=== PATIENT | male | born 1955 | race Caucasian/White ===

== ENCOUNTER 2019-08-04 09:58 | Outpatient (CLI) | payer BC, SELFPAY ==
[2019-08-04 10:41] LABS: Basophils % 0.6 %; Eosinophils # 0.1 10^3/uL (0.0-0.8); Eosinophils % 3.1 %; Hematocrit 42.4 % (42.0-52.0); Hemoglobin 14.8 g/dL (11.7-16.6); Lymphocytes # 0.3 10^3/uL (0.8-4.8); Lymphocytes % 7.9 %; Mean Corpuscular HGB Conc 34.9 g/dL (30.0-36.0); Mean Corpuscular Hemoglobin 30.9 pg (28.0-34.0); Mean Corpuscular Volume 88.5 fL (80-94); Mean Platelet Volume 10.1 fL (7.4-10.4); Monocytes # 0.3 10^3/uL (0.2-0.9); Neutrophils # 2.8 10^3/uL (1.8-7.7); Neutrophils % 77.7 %; Nucleated Red Blood Cells % 0 %; Platelet Count 163 10^3/cmm (130-400); Red Blood Count 4.79 10^6/uL (4.1-5.3); Red Cell Distribution Width 12.3 % (12.1-15.1); White Blood Count 3.6 10^3/uL (4.0-10.0)
[2019-08-04 10:52] LABS: Alanine Aminotransferase 26 U/L (0-41); Albumin Level 3.9 g/dL (3.5-5.2); Alkaline Phosphatase 79 IU/L (40-130); Anion Gap 16.4 (5-19); Aspartate Amino Transferase 36 U/L (0-40); Blood Urea Nitrogen 14 mg/dL (8-23); Calcium 9.5 mg/dL (8.5-10.5); Carbon Dioxide 24 mmol/L (22-29); Chloride 99 mmol/L (98-107); Globulin 2.7 g/dL (1.3-4.6); Glomerular Filtration Rate 67.4 mL/min (90-130); Glucose 175 mg/dL (74-106); Potassium 3.4 mmol/L (3.5-5.1); Sodium 136 mmol/L (136-145); Total Bilirubin 0.5 mg/dL (0.15-1.2); Total Protein 6.6 g/dL (6.6-8.7)
== END 2019-08-04 09:59 | disposition home or self-care (01) ==
LOC: ONCMED 09:58
PROVIDERS: Family Provider Family Medicine; PCP Family Medicine; Visit Provider Internal Medicine Hematology & Oncology
DX: C82.98 Follicular lymphoma, unspecified, lymph nodes of multiple sites (principal); Z90.49 Acquired absence of other specified parts of digestive tract; D69.6 Thrombocytopenia, unspecified; Z79.899 Other long term (current) drug therapy
CPT/HCPCS: 36415; 80053; 85025; 99214

== ENCOUNTER 2019-09-01 09:01 | Outpatient (CLI) | payer BC, SELFPAY ==
[2019-09-01] MEDS: diphenhydrAMINE 25 mg Capsule PO (09:36)
[2019-09-01] MEDS: acetaminophen 325 mg Tablet 650 MG PO (09:36)
[2019-09-01] MEDS: sodium chloride 0.9% 500 ML 270 ML IV (10:14)
== END 2019-09-01 09:02 | disposition home or self-care (01) ==
LOC: ONCMED 09:08
PROVIDERS: Family Provider Family Medicine; PCP Family Medicine; Visit Provider Nurse Practitioner
DX: Z51.12 Encounter for antineoplastic immunotherapy (principal); C82.90 Follicular lymphoma, unspecified, unspecified site
CPT/HCPCS: 96413; 96415; J7040; J9312

== ENCOUNTER 2019-12-02 08:45 | Outpatient (CLI) | payer BC, SELFPAY ==
[2019-12-02 09:49] LABS: Basophils % 0.4 %; Eosinophils # 0.1 10^3/uL (0.0-0.8); Eosinophils % 2.2 %; Hematocrit 39.4 % (42.0-52.0); Hemoglobin 13.4 g/dL (11.7-16.6); Lymphocytes # 0.2 10^3/uL (0.8-4.8); Lymphocytes % 4.8 %; Mean Corpuscular Volume 88.3 fL (80-94); Mean Platelet Volume 10.2 fL (7.4-10.4); Monocytes # 0.5 10^3/uL (0.2-0.9); Monocytes % 8.9 %; Neutrophils # 4.2 10^3/uL (1.8-7.7); Neutrophils % 83.5 %; Nucleated Red Blood Cells % 0 %; Platelet Count 163 10^3/cmm (130-400); Red Blood Count 4.46 10^6/uL (4.1-5.3); Red Cell Distribution Width 12.2 % (12.1-15.1)
[2019-12-02 10:03] LABS: Alanine Aminotransferase 25 U/L (0-41); Albumin Level 3.9 g/dL (3.5-5.2); Alkaline Phosphatase 73 IU/L (40-130); Anion Gap 14.5 (5-19); Aspartate Amino Transferase 31 U/L (0-40); Blood Urea Nitrogen 10 mg/dL (8-23); Calcium 9.2 mg/dL (8.5-10.5); Carbon Dioxide 24 mmol/L (22-29); Chloride 101 mmol/L (98-107); Globulin 1.9 g/dL (1.3-4.6); Glucose 144 mg/dL (65-115); Osmolality Calculated 281 mOsm/kg (285-295); Potassium 3.5 mmol/L (3.5-5.1); Sodium 136 mmol/L (136-145); Total Bilirubin 0.6 mg/dL (0.15-1.2); Total Protein 5.8 g/dL (6.6-8.7)
[2019-12-02] MEDS: diphenhydrAMINE 25 mg Capsule PO (12:23)
[2019-12-02] MEDS: acetaminophen 325 mg Tablet 650 MG PO (12:23)
[2019-12-02] MEDS: sodium chloride 0.9% 500 ML 75 ML IV (12:23)
--- NOTE | 2019-12-02 16:39 | ONC FU_ITS ---
Dr. Villafuerte follow up note Patient: Eugenio Arzola Unit #: [id number]: 1955 Dicatated By: Awa Villafuerte M.D.Date of Visit:Dec 02, 2019 Onc Med Follow-up/Prog Note History of Present Illness: Mr. Arzola is a 64 year-old gentleman with about six-month history of progressive generalized weakness and recurrent fever and chills. He was treated with antibiotics for presumed bronchitis with no relief. He had drenching night sweats for the last 2 months and weight loss about 20 pounds in the last 3-4 months. As per family/sister report, Mr Arzola started having nausea vomiting for which he underwent CT scan of chest abdomen and pelvis on 08/07/2018 which showed prominent splenomegaly with spleen size about 22 cm, wedge-shaped low density abnormality in the upper spleen. Postcholecystectomy. CT scan of head was done on 08/07/2018 showed no abnormality Stress test done showed ejection fraction 70%, normal Cardiolite stress test His follow-up lab workup done in his PMDs office shows mild anemia and moderate thrombocytopenia, platelet count was 55,000 with hemoglobin 11 white blood count 6.4 patient was referred to Dr. Contreras medical oncologist in [place], bone marrow evaluation was done on 08/22/2018 showed 20% lymphocytes, flow cytometry showed a seated 10+ be lineage non-Hodgkin lymphoma of small cell size consistent with follicular's lymphoma, cytogenetic was unremarkable, normal male karyotype CT PET scan was done on 08/09/2018 showed abnormal increase activity within a significantly enlarged spleen. Increase activity in lymph nodes in the left axilla, right hilum and subcarinal area and right and left groins consistent with lymphoma Small left pleural effusion JAK2 mutation was negative Dr. Contreras, medical oncologist recommended bendamustine and Rituxan chemotherapy but patient lives close to [place], so he decided to transfer his care to cancer Center in [place]. Mr. Arzola began his first cycle of bendamustine/Rituxan on 09/17/2018.Completed four doses of bendamustine/Rituxan on 12/17/2018 Abdominal sonogram done on 10/31/2018 showed spleen measures 13.8 cm x 5.9 x 4.9 cm, echotexture of the spleen is otherwise normal Compared to CT scan of abdomen done prior to the treatment which showed spleen was 22 cm Follow-up CT PET scan done on 01/14/2019 showed pronounced improvement with minimal activity in the spleen and essentially no abnormal activity seen in the lymph nodes Completed 4 cycles of chemotherapy with bendamustine/Rituxan on 12/18/2018 and now being started on maintenance Rituxan 375 mg/m??? every 3 months ???12 doses on 03/11/2019Long-standing e.g. since childhood, History of presyncopal attack and also in other 10 siblings. Mother used to have similar episodes. None of the family member investigated for the cause. On 05/13/2019, during blood drawn for lab workup patient developed presyncopal attack for which she was sent to [facility] where he had CTA pulmonary, showed no evidence of pulmonary embolus X Also had carotid Doppler study which showed normal Doppler flow on both sides. Came for follow-up, denies any specific complaints, no fever or chills, no nausea or vomiting, no skin rash, no diarrhea constipation, no night sweats, no peripheral lymphadenopathy, no recurrent fever, no weight loss. Tolerating Rituxan well Medications: Aspirin 1 Tablet (of 81 mg) Oral daily, Levothyroxine Sodium 1 Tablet (of 100 mcg) Oral daily, Losartan Potassium 1 Tablet (of 50 mg) Oral daily, Melatonin 1 Tablet (of 10 mg) Oral at bedtime Allergies: No Known Allergies. Review of Systems: Constitutional - Appetite is good and weight is stable. No fever, chills, hot flashes, or night sweats. Energy level is good, ENMT - No sinus congestion/drainage. No sore throat or difficulty swallowing, Hematologic/Lymphatic - No abnormal bruising or bleeding, Respiratory - Negative for shortness of breath. No cough. No pleuritic pain or hemoptysis, Cardiovascular - No angina pain. No palpitations, Gastrointestinal - No nausea, no vomiting. No heartburn or acid reflux. No diarrhea or constipation. No blood in the stool or black stools, Genitourinary (M) - No dysuria or hematuria. No urinary frequency. No urgency or incontinence, Musculoskeletal - No joint or bone pain, Neurologic - No headache or dizziness. Positive for numbness in hands and feet, Psychiatric - No anxiety or depression. Positive for occasional insomnia. Vital Signs: Performed on Dec 02, 2019 11:35 Height - 69.00 in Weight - 215.6 lbs (LOW) BSA - 2.13 sq.m BMI - 31.84 (HIGH) Temperature - 97.7 F (LOW) Pulse - 62 /min Respiration - 22 /min BP - 122/83 mm(hg) O2 Sat - 98 % Pain - 0 Performance Status: 0 - Fully active, able to carry on all predisease activities without restrictions. (ECOG) Physical Examination: ENMT - no mouth sores, no thrush, Respiratory - Lungs are clear, Cardiovascular - Regular rate and rhythm of heart, Abdomen - soft, bowel sounds present, Extremities - no visible edema, or rash. Lab/Imaging: Test performed on Aug 04, 2019 10:15 Sodium 136 mmol/L Potassium 3.4 mmol/L Chloride 99 mmol/L CO2 24 mmol/L Anion Gap 16.4 BUN 14 mg/dL Creatinine 1.1 mg/dL Cr Clearance (Est) 88.4500 mL/min eGFR 67.4 mL/min Glucose 175 mg/dL Calcium 9.5 mg/dL Protein, Total 6.6 g/dL Albumin 3.9 g/dL Globulin 2.7 g/dL Bilirubin, Total 0.5 mg/dL ALT (SGPT) 26 U/L AST (SGOT) 36 U/L Alkaline Phosphatase 79 IU/L WBC 3.6 10 3/uL RBC 4.79 10 6/uL HGB 14.8 g/dL HCT 42.4 % MCV 88.5 fL MCH 30.9 pg MCHC 34.9 g/dL RDW 12.3 % Platelet Count 163 10 3/cmm MPV 10.1 fL Neutrophils 2.8 10 3/uL Lymphocytes 0.3 10 3/uL Monocytes 0.3 10 3/uL Eosinophils 0.1 10 3/uL Basophils 0.0 10 3/uL Neutrophil % 77.7 % Lymphocyte % 7.9 % Monocyte % 9.0 % Eosinophil % 3.1 % Basophils % 0.6 % Impression: Follicular lymphoma per bone marrow biopsy done on 08/22/2018 showed 20% lymphocytes, flow cytometry reveals a CD10 positive, B lineage non-Hodgkin's lymphoma of small cell size consistent with follicular lymphoma Cytogenetics showed normal male karyotype CT scan of chest abdomen pelvis on 08/07/2018 showed prominent splenomegaly with the spleen measuring at least 22 cm Follow-up ultrasound abdomen done on 10/31/2018 after 2 cycles of bendamustine/Rituxan showed good response with spleen size decreased to 13.8 cm Status post cholecystectomy Thrombocytopenia, platelet count 55,000, mild anemia CT PET scan done on 09/06/2018 showed abnormal increased activity within significantly enlarged spleen Increase activity in lymph nodes in the left axilla, right hilum and subcarinal area and right and left groin consistent with lymphoma B symptoms, including drenching night sweats, recurrent chills, weight loss, discussed with patient his disease status and treatment options patient has significant B symptoms severe enough to interfere in his day to day activity, and bothersome progressive generalized weakness and fatigue,, abdominal fullness due to massive spleen. Thrombocytopenia/anemia appears multifactorial including due to hypersplenism and or bone marrow infiltration with follicular lymphoma cell and/or autoimmune Treatment options were discussed in detail including bendamustine/Rituxan regimen as recommended by Dr. Contreras, medical oncologist in [place].we are in agreement with that treatment plan. He was started on prednisone in the interim as well as allopurinol for tumor lysis. A hepatitis profile was negative. Mr. Arzola began his first cycle of bendamustine and Rituxan on 09/17/2018.Completed four doses of bendamustine/Rituxan on 12/17/2018 follow-up CT PET scan done on 01/14/2019 showed pronounced improvement with minimal activity in the spleen and essentially no abnormal activity seen in the lymph nodes Completed 4 cycles of bendamustine/Rituxan on 12/18/2018, now being started on maintenance Rituxan 375 mg/m??? every 2 months ???12 doses on 03/11/2019 Plan: Discussed with patient regarding his labs white blood count 5 hemoglobin 13.4 hematocrit 39.4 platelets 162,000 CMP within normal limits Clinically, patient doing well, no B signs symptom suggestive of disease progression, tolerating maintenance dose Rituxan well, we'll proceed with next dose of Rituxan today and then he will return to clinic in 2 months as patient is tolerating Rituxan well so we'll switch him to Rituxan every 2 months for remaining maintenance course e.g. total 12 doses Signed By: Awa Villafuerte M.D. <<Signature on File>>
== END 2019-12-02 08:46 | disposition home or self-care (01) ==
LOC: ONCMED 08:45
PROVIDERS: PCP Family Medicine; Visit Provider Internal Medicine Hematology & Oncology
DX: Z51.12 Encounter for antineoplastic immunotherapy (principal); C82.90 Follicular lymphoma, unspecified, unspecified site; I10 Essential (primary) hypertension; E03.9 Hypothyroidism, unspecified; R16.1 Splenomegaly, not elsewhere classified
CPT/HCPCS: 36415; 80053; 85025; 96413; 96415; 99214; J7040; J9312

== ENCOUNTER 2020-02-02 08:55 | Outpatient (CLI) | payer BC, SELFPAY ==
[2020-02-02 09:56] LABS: Basophils % 0.2 %; Eosinophils # 0.1 10^3/uL (0.0-0.8); Eosinophils % 2.2 %; Hematocrit 40.1 % (42.0-52.0); Hemoglobin 13.7 g/dL (11.7-16.6); Lymphocytes # 0.3 10^3/uL (0.8-4.8); Lymphocytes % 6.7 %; Mean Corpuscular HGB Conc 34.2 g/dL (30.0-36.0); Mean Corpuscular Hemoglobin 30.8 pg (28.0-34.0); Mean Corpuscular Volume 90.1 fL (80-94); Mean Platelet Volume 10.8 fL (7.4-10.4); Monocytes # 0.4 10^3/uL (0.2-0.9); Monocytes % 8.9 %; Neutrophils # 3.64 10^3/uL (1.8-7.7); Neutrophils % 81.6 %; Nucleated Red Blood Cells % 0 %; Platelet Count 150 10^3/cmm (130-400); Red Blood Count 4.45 10^6/uL (4.1-5.3); Red Cell Distribution Width 12.6 % (12.1-15.1); White Blood Count 4.5 10^3/uL (4.0-10.0)
[2020-02-02 10:17] LABS: Alanine Aminotransferase 36 U/L (0-41); Albumin Level 4.2 g/dL (3.5-5.2); Alkaline Phosphatase 70 IU/L (40-130); Anion Gap 14.5 (5-19); Aspartate Amino Transferase 47 U/L (0-40); Blood Urea Nitrogen 12 mg/dL (8-23); Calcium 8.7 mg/dL (8.5-10.5); Carbon Dioxide 24 mmol/L (22-29); Chloride 104 mmol/L (98-107); Globulin 2.1 g/dL (1.3-4.6); Glomerular Filtration Rate 75.2 mL/min (90-130); Glucose 166 mg/dL (65-115); Osmolality Calculated 288 mOsm/kg (285-295); Potassium 3.5 mmol/L (3.5-5.1); Sodium 139 mmol/L (136-145); Total Bilirubin 0.6 mg/dL (0.15-1.2); Total Protein 6.3 g/dL (6.6-8.7)
[2020-02-02] MEDS: acetaminophen 325 mg Tablet 650 MG PO (12:05)
[2020-02-02] MEDS: diphenhydrAMINE 25 mg Capsule PO (12:05)
[2020-02-02] MEDS: sodium chloride 0.9% 500 ML 270 ML IV (12:20)
--- NOTE | 2020-02-02 14:53 | ONC FU_ITS ---
Dr. Villafuerte follow up note Patient: Eugenio Arzola Unit #: [id number]: 1955 Dicatated By: Awa Villafuerte M.D.Date of Visit:Feb 02, 2020 Onc Med Follow-up/Prog Note History of Present Illness: Mr. Arzola is a 64 year-old gentleman with about six-month history of progressive generalized weakness and recurrent fever and chills. He was treated with antibiotics for presumed bronchitis with no relief. He had drenching night sweats for the last 2 months and weight loss about 20 pounds in the last 3-4 months. As per family/sister report, Mr Arzola started having nausea vomiting for which he underwent CT scan of chest abdomen and pelvis on 08/07/2018 which showed prominent splenomegaly with spleen size about 22 cm, wedge-shaped low density abnormality in the upper spleen. Postcholecystectomy. CT scan of head was done on 08/07/2018 showed no abnormality Stress test done showed ejection fraction 70%, normal Cardiolite stress test His follow-up lab workup done in his PMDs office shows mild anemia and moderate thrombocytopenia, platelet count was 55,000 with hemoglobin 11 white blood count 6.4 patient was referred to Dr. Contreras medical oncologist in [place], bone marrow evaluation was done on 08/22/2018 showed 20% lymphocytes, flow cytometry showed a seated 10+ be lineage non-Hodgkin lymphoma of small cell size consistent with follicular's lymphoma, cytogenetic was unremarkable, normal male karyotype CT PET scan was done on 08/09/2018 showed abnormal increase activity within a significantly enlarged spleen. Increase activity in lymph nodes in the left axilla, right hilum and subcarinal area and right and left groins consistent with lymphoma Small left pleural effusion JAK2 mutation was negative Dr. Contreras, medical oncologist recommended bendamustine and Rituxan chemotherapy but patient lives close to [place], so he decided to transfer his care to cancer Center in [place]. Mr. Arzola began his first cycle of bendamustine/Rituxan on 09/17/2018.Completed four doses of bendamustine/Rituxan on 12/17/2018 Abdominal sonogram done on 10/31/2018 showed spleen measures 13.8 cm x 5.9 x 4.9 cm, echotexture of the spleen is otherwise normal Compared to CT scan of abdomen done prior to the treatment which showed spleen was 22 cm Follow-up CT PET scan done on 01/14/2019 showed pronounced improvement with minimal activity in the spleen and essentially no abnormal activity seen in the lymph nodes Completed 4 cycles of chemotherapy with bendamustine/Rituxan on 12/18/2018 and now being started on maintenance Rituxan 375 mg/m??? every 3 months ???12 doses on 03/11/2019Long-standing e.g. since childhood, History of presyncopal attack and also in other 10 siblings. Mother used to have similar episodes. None of the family member investigated for the cause. On 05/13/2019, during blood drawn for lab workup patient developed presyncopal attack for which she was sent to [facility] where he had CTA pulmonary, showed no evidence of pulmonary embolus X Also had carotid Doppler study which showed normal Doppler flow on both sides. Came for follow-up, denies any specific complaints, no fever chills, no nausea or vomiting, no diarrhea or constipation, no night sweats, no weight loss, no recurrent fever, no peripheral lymphadenopathy, no abdominal fullness, no jaundice, no skin rash, tolerating maintenance therapy with Rituxan well Medications: Aspirin 1 Tablet (of 81 mg) Oral daily, Levothyroxine Sodium 1 Tablet (of 100 mcg) Oral daily, Losartan Potassium 1 Tablet (of 50 mg) Oral daily, Melatonin 1 Tablet (of 10 mg) Oral at bedtime Allergies: No Known Allergies. Review of Systems: Constitutional - Appetite is good and weight is stable. No fever, chills, hot flashes, or night sweats. Energy level is good, ENMT - No sinus congestion/drainage. No sore throat or difficulty swallowing, Hematologic/Lymphatic - No abnormal bruising or bleeding, Respiratory - Negative for shortness of breath. No cough. No pleuritic pain or hemoptysis, Cardiovascular - No angina pain. No palpitations, Gastrointestinal - No nausea, no vomiting. No heartburn or acid reflux. No diarrhea or constipation. No blood in the stool or black stools, Genitourinary (M) - No dysuria or hematuria. No urinary frequency. No urgency or incontinence, Musculoskeletal - No joint or bone pain, Neurologic - No headache or dizziness. Positive for numbness in hands and feet, Psychiatric - No anxiety or depression. Positive for occasional insomnia. Vital Signs: Performed on Feb 02, 2020 11:21 Height - 69.00 in Weight - 226.2 lbs (HIGH) BSA - 2.18 sq.m BMI - 33.40 (HIGH) Temperature - 97.5 F (LOW) Pulse - 57 /min (LOW) Respiration - 18 /min BP - 119/78 mm(hg) O2 Sat - 99 % Pain - 0 Performance Status: 0 - Fully active, able to carry on all predisease activities without restrictions. (ECOG) Physical Examination: ENMT - No mouth sores, no thrush, no jaundice, no peripheral lymphadenopathy, Respiratory - Lungs are clear, Cardiovascular - Regular rate and rhythm of heart, Abdomen - Soft, bowel sounds present, Extremities - No visible edema. Lab/Imaging: Test performed on Feb 02, 2020 09:15 WBC 4.5 10 3/uL RBC 4.45 10 6/uL HGB 13.7 g/dL HCT 40.1 % MCV 90.1 fL MCH 30.8 pg MCHC 34.2 g/dL RDW 12.6 % Platelet Count 150 10 3/cmm MPV 10.8 fL Neutrophils 3.64 10 3/uL Lymphocytes 0.3 10 3/uL Monocytes 0.4 10 3/uL Eosinophils 0.1 10 3/uL Basophils 0.0 10 3/uL Neutrophil % 81.6 % Lymphocyte % 6.7 % Monocyte % 8.9 % Eosinophil % 2.2 % Basophils % 0.2 % NRBC % 0 % Test performed on Dec 02, 2019 09:30 Sodium 136 mmol/L Potassium 3.5 mmol/L Chloride 101 mmol/L CO2 24 mmol/L Anion Gap 14.5 BUN 10 mg/dL Creatinine 0.9 mg/dL Cr Clearance (Est) 108.1000 mL/min eGFR 85.0 mL/min Glucose 144 mg/dL Calcium 9.2 mg/dL Protein, Total 5.8 g/dL Albumin 3.9 g/dL Globulin 1.9 g/dL Bilirubin, Total 0.6 mg/dL ALT (SGPT) 25 U/L AST (SGOT) 31 U/L Alkaline Phosphatase 73 IU/L Impression: Follicular lymphoma per bone marrow biopsy done on 08/22/2018 showed 20% lymphocytes, flow cytometry reveals a CD10 positive, B lineage non-Hodgkin's lymphoma of small cell size consistent with follicular lymphoma Cytogenetics showed normal male karyotype CT scan of chest abdomen pelvis on 08/07/2018 showed prominent splenomegaly with the spleen measuring at least 22 cm Follow-up ultrasound abdomen done on 10/31/2018 after 2 cycles of bendamustine/Rituxan showed good response with spleen size decreased to 13.8 cm Status post cholecystectomy Thrombocytopenia, platelet count 55,000, mild anemia CT PET scan done on 09/06/2018 showed abnormal increased activity within significantly enlarged spleen Increase activity in lymph nodes in the left axilla, right hilum and subcarinal area and right and left groin consistent with lymphoma B symptoms, including drenching night sweats, recurrent chills, weight loss, discussed with patient his disease status and treatment options patient has significant B symptoms severe enough to interfere in his day to day activity, and bothersome progressive generalized weakness and fatigue,, abdominal fullness due to massive spleen. Thrombocytopenia/anemia appears multifactorial including due to hypersplenism and or bone marrow infiltration with follicular lymphoma cell and/or autoimmune Treatment options were discussed in detail including bendamustine/Rituxan regimen as recommended by Dr. Contreras, medical oncologist in [place].we are in agreement with that treatment plan. He was started on prednisone in the interim as well as allopurinol for tumor lysis. A hepatitis profile was negative. Mr. Arzola began his first cycle of bendamustine and Rituxan on 09/17/2018.Completed four doses of bendamustine/Rituxan on 12/17/2018 follow-up CT PET scan done on 01/14/2019 showed pronounced improvement with minimal activity in the spleen and essentially no abnormal activity seen in the lymph nodes Completed 4 cycles of bendamustine/Rituxan on 12/18/2018, now being started on maintenance Rituxan 375 mg/m??? every 2 months ???12 doses on 03/11/2019 Plan: Discussed with patient regarding his labs white blood count 4.5 hemoglobin 13.7 crit 40.1 platelets 150,000 CMP within normal limits Clinically, patient is doing well with no signs symptom suggestive of recurrence of disease e.g. no B symptoms and lab work-up is also within normal range, will proceed with next 2 monthly dose # 5/12 of Rituxan today and return to clinic in 2 months with CBC CMP Signed By: Awa Villafuerte M.D. <<Signature on File>>
== END 2020-02-02 08:56 | disposition home or self-care (01) ==
LOC: ONCMED 08:57
PROVIDERS: PCP Family Medicine; Visit Provider Internal Medicine Hematology & Oncology
DX: Z51.12 Encounter for antineoplastic immunotherapy (principal); C82.99 Follicular lymphoma, unspecified, extranodal and solid organ sites
CPT/HCPCS: 80053; 85025; 96413; 96415; 99214; J7040; J9312

== ENCOUNTER 2020-04-05 08:55 | Outpatient (CLI) | payer MEDICARE, BC, SELFPAY ==
[2020-04-05 09:51] LABS: Basophils % 0.2 %; Eosinophils # 0.1 10^3/uL (0.0-0.8); Eosinophils % 2.2 %; Hematocrit 41.5 % (42.0-52.0); Lymphocytes # 0.2 10^3/uL (0.8-4.8); Lymphocytes % 4.2 %; Mean Corpuscular HGB Conc 33.7 g/dL (30.0-36.0); Mean Corpuscular Hemoglobin 30.4 pg (28.0-34.0); Mean Corpuscular Volume 90.2 fL (80-94); Mean Platelet Volume 10.2 fL (7.4-10.4); Monocytes # 0.5 10^3/uL (0.2-0.9); Monocytes % 8.2 %; Neutrophils # 4.66 10^3/uL (1.8-7.7); Neutrophils % 84.8 %; Nucleated Red Blood Cells % 0 %; Platelet Count 153 10^3/cmm (130-400); Red Cell Distribution Width 12.5 % (12.1-15.1); White Blood Count 5.5 10^3/uL (4.0-10.0)
[2020-04-05 10:08] LABS: Alanine Aminotransferase 47 U/L (0-41); Albumin Level 3.9 g/dL (3.5-5.2); Alkaline Phosphatase 81 IU/L (40-130); Anion Gap 16.6 (5-19); Aspartate Amino Transferase 55 U/L (0-40); Blood Urea Nitrogen 14 mg/dL (8-23); Calcium 8.9 mg/dL (8.5-10.5); Carbon Dioxide 19 mmol/L (22-29); Chloride 103 mmol/L (98-107); Glomerular Filtration Rate 84.7 mL/min (90-130); Glucose 168 mg/dL (65-115); Osmolality Calculated 284 mOsm/kg (285-295); Potassium 3.6 mmol/L (3.5-5.1); Sodium 135 mmol/L (136-145); Total Bilirubin 0.8 mg/dL (0.15-1.2); Total Protein 5.9 g/dL (6.6-8.7)
[2020-04-05] MEDS: diphenhydrAMINE 25 mg Capsule PO (11:40)
[2020-04-05] MEDS: acetaminophen 325 mg Tablet 650 MG PO (11:40)
[2020-04-05] MEDS: sodium chloride 0.9% 500 ML 75 ML IV (11:57)
--- NOTE | 2020-04-05 14:48 | ONC FU_ITS ---
Dr. Villafuerte follow up note Patient: Eugenio Arzola Unit #: [id number]: 1955 Dicatated By: Awa Villafuerte M.D.Date of Visit:Apr 05, 2020 Onc Med Follow-up/Prog Note History of Present Illness: 5MrEugene Arzola is a 65 year-old gentleman with about six-month history of progressive generalized weakness and recurrent fever and chills. He was treated with antibiotics for presumed bronchitis with no relief. He had drenching night sweats for the last 2 months and weight loss about 20 pounds in the last 3-4 months. As per family/sister report, Mr Arzola started having nausea vomiting for which he underwent CT scan of chest abdomen and pelvis on 08/07/2018 which showed prominent splenomegaly with spleen size about 22 cm, wedge-shaped low density abnormality in the upper spleen. Postcholecystectomy. CT scan of head was done on 08/07/2018 showed no abnormality Stress test done showed ejection fraction 70%, normal Cardiolite stress test His follow-up lab workup done in his [facility] office shows mild anemia and moderate thrombocytopenia, platelet count was 55,000 with hemoglobin 11 white blood count 6.4 patient was referred to Dr. Contreras medical oncologist in [place], bone marrow evaluation was done on 08/22/2018 showed 20% lymphocytes, flow cytometry showed a seated 10+ be lineage non-Hodgkin lymphoma of small cell size consistent with follicular's lymphoma, cytogenetic was unremarkable, normal male karyotype CT PET scan was done on 08/09/2018 showed abnormal increase activity within a significantly enlarged spleen. Increase activity in lymph nodes in the left axilla, right hilum and subcarinal area and right and left groins consistent with lymphoma Small left pleural effusion JAK2 mutation was negative Dr. White, medical oncologist recommended bendamustine and Rituxan chemotherapy but patient lives close to [place], so he decided to transfer his care to cancer Center in [place]. Mr. Arzola began his first cycle of bendamustine/Rituxan on 09/17/2018.Completed four doses of bendamustine/Rituxan on 12/17/2018 Abdominal sonogram done on 10/31/2018 showed spleen measures 13.8 cm x 5.9 x 4.9 cm, echotexture of the spleen is otherwise normal Compared to CT scan of abdomen done prior to the treatment which showed spleen was 22 cm Follow-up CT PET scan done on 01/14/2019 showed pronounced improvement with minimal activity in the spleen and essentially no abnormal activity seen in the lymph nodes Completed 4 cycles of chemotherapy with bendamustine/Rituxan on 12/18/2018 and now being started on maintenance Rituxan 375 mg/m??? every 3 months ???12 doses on 03/11/2019Long-standing e.g. since childhood, History of presyncopal attack and also in other 10 siblings. Mother used to have similar episodes. None of the family member investigated for the cause. On 05/13/2019, during blood drawn for lab workup patient developed presyncopal attack for which she was sent to [facility] where he had CTA pulmonary, showed no evidence of pulmonary embolus X Also had carotid Doppler study which showed normal Doppler flow on both sides. Came for follow-up, denies any specific complaints, no fever chills, no nausea or vomiting, no night sweats, no weight loss, no peripheral lymphadenopathy or abdominal fullness, no recurrent fever., No skin rash, no jaundice, no shortness of breath or palpitation, tolerating maintenance dose with Rituxan well Medications: Aspirin 1 Tablet (of 81 mg) Oral daily, Levothyroxine Sodium 1 Tablet (of 100 mcg) Oral daily, Losartan Potassium 1 Tablet (of 50 mg) Oral daily, Melatonin 1 Tablet (of 10 mg) Oral at bedtime Allergies: No Known Allergies. Review of Systems: Review of Systems is not available for this patient. Vital Signs: Performed on Apr 05, 2020 10:42 Height - 69.00 in Weight - 224.6 lbs (LOW) BSA - 2.17 sq.m BMI - 33.17 (HIGH) Temperature - 97.8 F (LOW) Pulse - 66 /min Respiration - 18 /min BP - 114/74 mm(hg) O2 Sat - 96 % Pain - 0 Performance Status: 0 - Fully active, able to carry on all predisease activities without restrictions. (ECOG) Physical Examination: ENMT - No mouth sores, no thrush, no jaundice, Respiratory - Lungs are clear, Cardiovascular - Regular rate and rhythm of heart, Abdomen - Soft, bowel sounds present, Extremities - No visible edema. Lab/Imaging: Test performed on Feb 02, 2020 09:15 Sodium 139 mmol/L Potassium 3.5 mmol/L Chloride 104 mmol/L CO2 24 mmol/L Anion Gap 14.5 BUN 12 mg/dL Creatinine 1.0 mg/dL Cr Clearance (Est) 108.30 mL/min eGFR 75.2 mL/min Glucose 166 mg/dL Calcium 8.7 mg/dL Protein, Total 6.3 g/dL Albumin 4.2 g/dL Globulin 2.1 g/dL Bilirubin, Total 0.6 mg/dL ALT (SGPT) 36 U/L AST (SGOT) 47 U/L Alkaline Phosphatase 70 IU/L WBC 4.5 10 3/uL RBC 4.45 10 6/uL HGB 13.7 g/dL HCT 40.1 % MCV 90.1 fL MCH 30.8 pg MCHC 34.2 g/dL RDW 12.6 % Platelet Count 150 10 3/cmm MPV 10.8 fL Neutrophils 3.64 10 3/uL Lymphocytes 0.3 10 3/uL Monocytes 0.4 10 3/uL Eosinophils 0.1 10 3/uL Basophils 0.0 10 3/uL Neutrophil % 81.6 % Lymphocyte % 6.7 % Monocyte % 8.9 % Eosinophil % 2.2 % Basophils % 0.2 % NRBC % 0 % Impression: Follicular lymphoma per bone marrow biopsy done on 08/22/2018 showed 20% lymphocytes, flow cytometry reveals a CD10 positive, B lineage non-Hodgkin's lymphoma of small cell size consistent with follicular lymphoma Cytogenetics showed normal male karyotype CT scan of chest abdomen pelvis on 08/07/2018 showed prominent splenomegaly with the spleen measuring at least 22 cm Follow-up ultrasound abdomen done on 10/31/2018 after 2 cycles of bendamustine/Rituxan showed good response with spleen size decreased to 13.8 cm Status post cholecystectomy Thrombocytopenia, platelet count 55,000, mild anemia CT PET scan done on 09/06/2018 showed abnormal increased activity within significantly enlarged spleen Increase activity in lymph nodes in the left axilla, right hilum and subcarinal area and right and left groin consistent with lymphoma B symptoms, including drenching night sweats, recurrent chills, weight loss, discussed with patient his disease status and treatment options patient has significant B symptoms severe enough to interfere in his day to day activity, and bothersome progressive generalized weakness and fatigue,, abdominal fullness due to massive spleen. Thrombocytopenia/anemia appears multifactorial including due to hypersplenism and or bone marrow infiltration with follicular lymphoma cell and/or autoimmune Treatment options were discussed in detail including bendamustine/Rituxan regimen as recommended by Dr. Contreras, medical oncologist in [place].we are in agreement with that treatment plan. He was started on prednisone in the interim as well as allopurinol for tumor lysis. A hepatitis profile was negative. Mr. Arzola began his first cycle of bendamustine and Rituxan on 09/17/2018.Completed four doses of bendamustine/Rituxan on 12/17/2018 follow-up CT PET scan done on 01/14/2019 showed pronounced improvement with minimal activity in the spleen and essentially no abnormal activity seen in the lymph nodes Completed 4 cycles of bendamustine/Rituxan on 12/18/2018, now being started on maintenance Rituxan 375 mg/m??? every 2 months ???12 doses on 03/11/2019 Plan: Discussed with patient regarding his labs white blood count 5.5 hemoglobin 14 crit 41.5 platelets 153,000 CMP within normal limits except ALT 47 and AST 55 compared to 36/47 on February 02, 2020 and on December 02, 2019 Clinically, patient is doing well with no signs symptom suggestive of recurrence of disease, no peripheral lymphadenopathy or organomegaly, tolerating maintenance therapy with Rituxan well. We will proceed with the next dose of Rituxan, today and then he will return to clinic 2 months with CBC CMP. Mild elevation of transaminases could be due to fatty infiltration of liver as patient has gained weight. We will monitor if continue to go up, will consider evaluation. Signed By: Awa Villafuerte M.D. <<Signature on File>>
== END 2020-04-05 08:56 | disposition home or self-care (01) ==
LOC: ONCMED 08:59
PROVIDERS: PCP Family Medicine; Visit Provider Internal Medicine Hematology & Oncology
DX: Z51.12 Encounter for antineoplastic immunotherapy (principal); C82.90 Follicular lymphoma, unspecified, unspecified site; D69.6 Thrombocytopenia, unspecified; R61 Generalized hyperhidrosis; R63.4 Abnormal weight loss; R68.83 Chills (without fever); R74.8 Abnormal levels of other serum enzymes
CPT/HCPCS: 80053; 85025; 96413; 96415; 99214; J7040; J9312

== ENCOUNTER 2020-06-02 07:58 | Outpatient (CLI) | payer MEDICARE, BC, SELFPAY ==
[2020-06-02 09:27] LABS: Basophils % 0.4 %; Eosinophils # 0.1 10^3/uL (0.0-0.8); Eosinophils % 2.3 %; Hematocrit 40.9 % (42.0-52.0); Hemoglobin 13.8 g/dL (11.7-16.6); Lymphocytes # 0.3 10^3/uL (0.8-4.8); Lymphocytes % 4.9 %; Mean Corpuscular HGB Conc 33.7 g/dL (30.0-36.0); Mean Corpuscular Hemoglobin 30.1 pg (28.0-34.0); Mean Corpuscular Volume 89.3 fL (80-94); Mean Platelet Volume 10.1 fL (7.4-10.4); Monocytes # 0.5 10^3/uL (0.2-0.9); Monocytes % 9.4 %; Neutrophils # 4.68 10^3/uL (1.8-7.7); Neutrophils % 82.6 %; Nucleated Red Blood Cells % 0 %; Platelet Count 157 10^3/cmm (130-400); Red Blood Count 4.58 10^6/uL (4.1-5.3); Red Cell Distribution Width 12.3 % (12.1-15.1); White Blood Count 5.7 10^3/uL (4.0-10.0)
[2020-06-02 10:03] LABS: Alanine Aminotransferase 35 U/L (0-41); Alkaline Phosphatase 84 IU/L (40-130); Anion Gap 15.9 (5-19); Aspartate Amino Transferase 39 U/L (0-40); Blood Urea Nitrogen 11 mg/dL (8-23); Calcium 8.8 mg/dL (8.5-10.5); Carbon Dioxide 23 mmol/L (22-29); Chloride 104 mmol/L (98-107); Globulin 1.9 g/dL (1.3-4.6); Glomerular Filtration Rate 84.7 mL/min (90-130); Glucose 124 mg/dL (65-115); Osmolality Calculated 289 mOsm/kg (285-295); Potassium 3.9 mmol/L (3.5-5.1); Sodium 139 mmol/L (136-145); Total Bilirubin 0.8 mg/dL (0.15-1.2); Total Protein 5.9 g/dL (6.6-8.7)
--- NOTE | 2020-06-02 10:20 | ONC FU_ITS ---
Dr. Villafuerte follow up note Patient: Eugenio Arzola Unit #: [id number]: 1955 Dicatated By: Awa Villafuerte M.D.Date of Visit:Jun 02, 2020 Onc Med Follow-up/Prog Note History of Present Illness: 5MrEugene Arzola is a 65 year-old gentleman with about six-month history of progressive generalized weakness and recurrent fever and chills. He was treated with antibiotics for presumed bronchitis with no relief. He had drenching night sweats for the last 2 months and weight loss about 20 pounds in the last 3-4 months. As per family/sister report, Mr Arzola started having nausea vomiting for which he underwent CT scan of chest abdomen and pelvis on 08/07/2018 which showed prominent splenomegaly with spleen size about 22 cm, wedge-shaped low density abnormality in the upper spleen. Postcholecystectomy. CT scan of head was done on 08/07/2018 showed no abnormality Stress test done showed ejection fraction 70%, normal Cardiolite stress test His follow-up lab workup done in his [facility] office shows mild anemia and moderate thrombocytopenia, platelet count was 55,000 with hemoglobin 11 white blood count 6.4 patient was referred to Dr. Contreras medical oncologist in [place], bone marrow evaluation was done on 08/22/2018 showed 20% lymphocytes, flow cytometry showed a seated 10+ be lineage non-Hodgkin lymphoma of small cell size consistent with follicular's lymphoma, cytogenetic was unremarkable, normal male karyotype CT PET scan was done on 08/09/2018 showed abnormal increase activity within a significantly enlarged spleen. Increase activity in lymph nodes in the left axilla, right hilum and subcarinal area and right and left groins consistent with lymphoma Small left pleural effusion JAK2 mutation was negative Dr. White, medical oncologist recommended bendamustine and Rituxan chemotherapy but patient lives close to [place], so he decided to transfer his care to cancer Center in [place]. Mr. Arzola began his first cycle of bendamustine/Rituxan on 09/17/2018.Completed four doses of bendamustine/Rituxan on 12/17/2018 Abdominal sonogram done on 10/31/2018 showed spleen measures 13.8 cm x 5.9 x 4.9 cm, echotexture of the spleen is otherwise normal Compared to CT scan of abdomen done prior to the treatment which showed spleen was 22 cm Follow-up CT PET scan done on 01/14/2019 showed pronounced improvement with minimal activity in the spleen and essentially no abnormal activity seen in the lymph nodes Completed 4 cycles of chemotherapy with bendamustine/Rituxan on 12/18/2018 and now being started on maintenance Rituxan 375 mg/m??? every 3 months ???12 doses on 03/11/2019Long-standing e.g. since childhood, History of presyncopal attack and also in other 10 siblings. Mother used to have similar episodes. None of the family member investigated for the cause. On 05/13/2019, during blood drawn for lab workup patient developed presyncopal attack for which she was sent to [facility] where he had CTA pulmonary, showed no evidence of pulmonary embolus X Also had carotid Doppler study which showed normal Doppler flow on both sides. tolerating maintenance dose with Rituxan well Came for follow-up, denies any specific complaints, no fever chills, no nausea or vomiting, no night sweats, no weight loss, no recurrent fever, no jaundice, no abdominal pain, no abdominal fullness, no peripheral lymphadenopathy Medications: Aspirin 1 Tablet (of 81 mg) Oral daily, Levothyroxine Sodium 1 Tablet (of 100 mcg) Oral daily, Losartan Potassium 1 Tablet (of 50 mg) Oral daily, Melatonin 1 Tablet (of 10 mg) Oral at bedtime, Simvastatin 1 Tablet (of 20 mg) Oral at bedtime Allergies: No Known Allergies. Review of Systems: Constitutional - Appetite is good and weight is stable. No fever, chills, hot flashes, or night sweats. Energy level is good, ENMT - No sinus congestion/drainage. No sore throat or difficulty swallowing, Hematologic/Lymphatic - No abnormal bruising or bleeding, Respiratory - Negative for shortness of breath. No cough. No pleuritic pain or hemoptysis, Cardiovascular - No angina pain. No palpitations, Gastrointestinal - No nausea, no vomiting. No heartburn or acid reflux. No diarrhea or constipation. No blood in the stool or black stools, Genitourinary (M) - No dysuria or hematuria. No urinary frequency. No urgency or incontinence, Musculoskeletal - No joint or bone pain, Neurologic - No headache or dizziness. Positive for numbness in hands and feet, Psychiatric - No anxiety or depression. Positive for occasional insomnia. Vital Signs: Performed on Jun 02, 2020 09:34 Height - 69.00 in Weight - 226.2 lbs (HIGH) BSA - 2.18 sq.m BMI - 33.40 (HIGH) Temperature - 97.6 F (LOW) Pulse - 61 /min Respiration - 20 /min BP - 127/76 mm(hg) O2 Sat - 97 % Pain - 0 Performance Status: 0 - Fully active, able to carry on all predisease activities without restrictions. (ECOG) Physical Examination: ENMT - No mouth sores, no thrush, no jaundice, Respiratory - Lungs are clear to auscultation, Cardiovascular - Regular rate and rhythm of heart , Abdomen - Soft, bowel sounds present, Extremities - No visible edema or rash or peripheral lymphadenopathy. Lab/Imaging: Test performed on Apr 05, 2020 09:39 Sodium 135 mmol/L Potassium 3.6 mmol/L Chloride 103 mmol/L CO2 19 mmol/L Anion Gap 16.6 BUN 14 mg/dL Creatinine 0.9 mg/dL Cr Clearance (Est) 118.7600 mL/min eGFR 84.7 mL/min Glucose 168 mg/dL Osmolality - Calculated 284 mOsm/kg Calcium 8.9 mg/dL Protein, Total 5.9 g/dL Albumin 3.9 g/dL Globulin 2.0 g/dL Bilirubin, Total 0.8 mg/dL ALT (SGPT) 47 U/L AST (SGOT) 55 U/L Alkaline Phosphatase 81 IU/L WBC 5.5 10 3/uL RBC 4.60 10 6/uL HGB 14.0 g/dL HCT 41.5 % MCV 90.2 fL MCH 30.4 pg MCHC 33.7 g/dL RDW 12.5 % Platelet Count 153 10 3/cmm MPV 10.2 fL Neutrophils 4.66 10 3/uL Lymphocytes 0.2 10 3/uL Monocytes 0.5 10 3/uL Eosinophils 0.1 10 3/uL Basophils 0.0 10 3/uL Neutrophil % 84.8 % Lymphocyte % 4.2 % Monocyte % 8.2 % Eosinophil % 2.2 % Basophils % 0.2 % NRBC % 0 % Impression: Follicular lymphoma per bone marrow biopsy done on 08/22/2018 showed 20% lymphocytes, flow cytometry reveals a CD10 positive, B lineage non-Hodgkin's lymphoma of small cell size consistent with follicular lymphoma Cytogenetics showed normal male karyotype CT scan of chest abdomen pelvis on 08/07/2018 showed prominent splenomegaly with the spleen measuring at least 22 cm Follow-up ultrasound abdomen done on 10/31/2018 after 2 cycles of bendamustine/Rituxan showed good response with spleen size decreased to 13.8 cm Status post cholecystectomy Thrombocytopenia, platelet count 55,000, mild anemia CT PET scan done on 09/06/2018 showed abnormal increased activity within significantly enlarged spleen Increase activity in lymph nodes in the left axilla, right hilum and subcarinal area and right and left groin consistent with lymphoma B symptoms, including drenching night sweats, recurrent chills, weight loss, discussed with patient his disease status and treatment options patient has significant B symptoms severe enough to interfere in his day to day activity, and bothersome progressive generalized weakness and fatigue,, abdominal fullness due to massive spleen. Thrombocytopenia/anemia appears multifactorial including due to hypersplenism and or bone marrow infiltration with follicular lymphoma cell and/or autoimmune Treatment options were discussed in detail including bendamustine/Rituxan regimen as recommended by Dr. Contreras, medical oncologist in [place].we are in agreement with that treatment plan. He was started on prednisone in the interim as well as allopurinol for tumor lysis. A hepatitis profile was negative. Mr. Arzola began his first cycle of bendamustine and Rituxan on 09/17/2018.Completed four doses of bendamustine/Rituxan on 12/17/2018 follow-up CT PET scan done on 01/14/2019 showed pronounced improvement with minimal activity in the spleen and essentially no abnormal activity seen in the lymph nodes Completed 4 cycles of bendamustine/Rituxan on 12/18/2018, now being started on maintenance Rituxan 375 mg/m??? every 2 months ???12 doses on 03/11/2019 Plan: Discussed with patient regarding his labs white blood count 5.7 hemoglobin 13.8 hematocrit 40.9 platelets 157,000 CMP within normal limit Clinically, patient doing well with no new signs symptoms suggestive of recurrence of lymphoma, tolerating maintenance therapy with Rituxan well his follow-up labs shows resolution of mildly elevated transaminases, will proceed with next dose of Rituxan today then return to clinic in 2 months with CBC CMP. Signed By: Awa Villafuerte M.D. <<Signature on File>>
[2020-06-02] MEDS: acetaminophen 325 mg Tablet 650 MG PO (10:33)
[2020-06-02] MEDS: diphenhydrAMINE 25 mg Capsule PO (10:33)
[2020-06-02] MEDS: sodium chloride 0.9% 500 ML 75 ML IV (10:44)
== END 2020-06-02 07:59 | disposition home or self-care (01) ==
LOC: ONCMED 08:02
PROVIDERS: PCP Family Medicine; Visit Provider Internal Medicine Hematology & Oncology
DX: Z51.12 Encounter for antineoplastic immunotherapy (principal); C82.98 Follicular lymphoma, unspecified, lymph nodes of multiple sites; D69.6 Thrombocytopenia, unspecified; Z79.899 Other long term (current) drug therapy
CPT/HCPCS: 80053; 85025; 96413; 96415; 99214; J7040; J9312

== ENCOUNTER 2020-08-04 08:41 | Outpatient (CLI) | payer MEDICARE, BC, SELFPAY ==
[2020-08-04 10:15] LABS: Basophils % 0.7 %; Eosinophils # 0.1 10^3/uL (0.0-0.8); Eosinophils % 2.6 %; Hematocrit 41.4 % (42.0-52.0); Hemoglobin 13.5 g/dL (11.7-16.6); Lymphocytes # 0.4 10^3/uL (0.8-4.8); Lymphocytes % 7.9 %; Mean Corpuscular HGB Conc 32.6 g/dL (30.0-36.0); Mean Corpuscular Hemoglobin 29.9 pg (28.0-34.0); Mean Corpuscular Volume 91.8 fL (80-94); Mean Platelet Volume 10.5 fL (7.4-10.4); Monocytes # 0.5 10^3/uL (0.2-0.9); Monocytes % 9.9 %; Neutrophils # 3.57 10^3/uL (1.8-7.7); Neutrophils % 78.7 %; Nucleated Red Blood Cells % 0 %; Platelet Count 102 10^3/cmm (130-400); Red Blood Count 4.51 10^6/uL (4.1-5.3); Red Cell Distribution Width 12.1 % (12.1-15.1); White Blood Count 4.5 10^3/uL (4.0-10.0)
[2020-08-04 10:46] LABS: Alanine Aminotransferase 27 U/L (0-41); Albumin Level 3.8 g/dL (3.5-5.2); Alkaline Phosphatase 98 IU/L (40-130); Aspartate Amino Transferase 28 U/L (0-40); Blood Urea Nitrogen 9 mg/dL (8-23); Calcium 8.8 mg/dL (8.5-10.5); Carbon Dioxide 23 mmol/L (22-29); Chloride 101 mmol/L (98-107); Globulin 2.1 g/dL (1.3-4.6); Glomerular Filtration Rate 84.7 mL/min (90-130); Glucose 132 mg/dL (65-115); Osmolality Calculated 281 mOsm/kg (285-295); Sodium 135 mmol/L (136-145); Total Bilirubin 0.8 mg/dL (0.15-1.2); Total Protein 5.9 g/dL (6.6-8.7)
[2020-08-04 10:49] LABS: Anion Gap 14.5 (5-19); Potassium 3.5 mmol/L (3.5-5.1)
[2020-08-04 10:57] LABS: Slide Review Slide Review Perform
[2020-08-04] MEDS: diphenhydrAMINE 25 mg Capsule PO (12:13)
[2020-08-04] MEDS: acetaminophen 325 mg Tablet 650 MG PO (12:13)
[2020-08-04] MEDS: sodium chloride 0.9% 500 ML 75 ML IV (12:25)
--- NOTE | 2020-08-04 13:42 | ONC FU_ITS ---
Dr. Villafuerte follow up note Patient: Eugenio Arzola Unit #: [id number]: 1955 Dicatated By: Aaw Villafuerte M.D.Date of Visit:Aug 04, 2020 Onc Med Follow-up/Prog Note History of Present Illness: 5MrEugene Arzola is a 65 year-old gentleman with about six-month history of progressive generalized weakness and recurrent fever and chills. He was treated with antibiotics for presumed bronchitis with no relief. He had drenching night sweats for the last 2 months and weight loss about 20 pounds in the last 3-4 months. As per family/sister report, Mr Arzola started having nausea vomiting for which he underwent CT scan of chest abdomen and pelvis on 08/07/2018 which showed prominent splenomegaly with spleen size about 22 cm, wedge-shaped low density abnormality in the upper spleen. Postcholecystectomy. CT scan of head was done on 08/07/2018 showed no abnormality Stress test done showed ejection fraction 70%, normal Cardiolite stress test His follow-up lab workup done in his PMDs office shows mild anemia and moderate thrombocytopenia, platelet count was 55,000 with hemoglobin 11 white blood count 6.4 patient was referred to Dr. Contreras medical oncologist in [place], bone marrow evaluation was done on 08/22/2018 showed 20% lymphocytes, flow cytometry showed a seated 10+ be lineage non-Hodgkin lymphoma of small cell size consistent with follicular's lymphoma, cytogenetic was unremarkable, normal male karyotype CT PET scan was done on 08/09/2018 showed abnormal increase activity within a significantly enlarged spleen. Increase activity in lymph nodes in the left axilla, right hilum and subcarinal area and right and left groins consistent with lymphoma Small left pleural effusion JAK2 mutation was negative Dr. Contreras, medical oncologist recommended bendamustine and Rituxan chemotherapy but patient lives close to [place], so he decided to transfer his care to cancer Center in [place]. Mr. Arzola began his first cycle of bendamustine/Rituxan on 09/17/2018.Completed four doses of bendamustine/Rituxan on 12/17/2018 Abdominal sonogram done on 10/31/2018 showed spleen measures 13.8 cm x 5.9 x 4.9 cm, echotexture of the spleen is otherwise normal Compared to CT scan of abdomen done prior to the treatment which showed spleen was 22 cm Follow-up CT PET scan done on 01/14/2019 showed pronounced improvement with minimal activity in the spleen and essentially no abnormal activity seen in the lymph nodes Completed 4 cycles of chemotherapy with bendamustine/Rituxan on 12/18/2018 and now being started on maintenance Rituxan 375 mg/m??? every 3 months ???12 doses on 03/11/2019Long-standing e.g. since childhood, History of presyncopal attack and also in other 10 siblings. Mother used to have similar episodes. None of the family member investigated for the cause. On 05/13/2019, during blood drawn for lab workup patient developed presyncopal attack for which she was sent [place] [facility] where he had CTA pulmonary, showed no evidence of pulmonary embolus X Also had carotid Doppler study which showed normal Doppler flow on both sides. tolerating maintenance dose with Rituxan well Came for follow-up, denies any specific complaints, no fever chills, no nausea or vomiting, no diarrhea constipation, no night sweats, no weight loss, no recurrent fever, no abdominal fullness, no peripheral lymphadenopathy, tolerating Rituxan well otherwise Medications: Aspirin 1 Tablet (of 81 mg) Oral daily, Levothyroxine Sodium 1 Tablet (of 100 mcg) Oral daily, Losartan Potassium 1 Tablet (of 50 mg) Oral daily, Melatonin 1 Tablet (of 10 mg) Oral at bedtime, Simvastatin 1 Tablet (of 20 mg) Oral at bedtime Allergies: No Known Allergies. Review of Systems: Review of Systems is not available for this patient. Vital Signs: Performed on Aug 04, 2020 11:45 Height - 69.00 in Weight - 225.4 lbs (LOW) BSA - 2.17 sq.m BMI - 33.29 (HIGH) Temperature - 97.9 F (LOW) Pulse - 70 /min Respiration - 18 /min BP - 135/82 mm(hg) O2 Sat - 97 % Pain - 0 Performance Status: 0 - Fully active, able to carry on all predisease activities without restrictions. (ECOG) Physical Examination: ENMT - No mouth sores, no thrush, no jaundice no cervical or axillary lymphadenopathy, Respiratory - Lungs are clear to auscultation, Cardiovascular - Regular rate and rhythm of heart, Abdomen - Soft, bowel sounds present, Extremities - No visible edema. Lab/Imaging: Test performed on Jun 02, 2020 09:04 Sodium 139 mmol/L Potassium 3.9 mmol/L Chloride 104 mmol/L CO2 23 mmol/L Anion Gap 15.9 BUN 11 mg/dL Creatinine 0.9 mg/dL Cr Clearance (Est) 118.7600 mL/min eGFR 84.7 mL/min Glucose 124 mg/dL Osmolality - Calculated 289 mOsm/kg Calcium 8.8 mg/dL Protein, Total 5.9 g/dL Albumin 4.0 g/dL Globulin 1.9 g/dL Bilirubin, Total 0.8 mg/dL ALT (SGPT) 35 U/L AST (SGOT) 39 U/L Alkaline Phosphatase 84 IU/L WBC 5.7 10 3/uL RBC 4.58 10 6/uL HGB 13.8 g/dL HCT 40.9 % MCV 89.3 fL MCH 30.1 pg MCHC 33.7 g/dL RDW 12.3 % Platelet Count 157 10 3/cmm MPV 10.1 fL Neutrophils 4.68 10 3/uL Lymphocytes 0.3 10 3/uL Monocytes 0.5 10 3/uL Eosinophils 0.1 10 3/uL Basophils 0.0 10 3/uL Neutrophil % 82.6 % Lymphocyte % 4.9 % Monocyte % 9.4 % Eosinophil % 2.3 % Basophils % 0.4 % NRBC % 0 % Impression: Follicular lymphoma per bone marrow biopsy done on 08/22/2018 showed 20% lymphocytes, flow cytometry reveals a CD10 positive, B lineage non-Hodgkin's lymphoma of small cell size consistent with follicular lymphoma Cytogenetics showed normal male karyotype CT scan of chest abdomen pelvis on 08/07/2018 showed prominent splenomegaly with the spleen measuring at least 22 cm Follow-up ultrasound abdomen done on 10/31/2018 after 2 cycles of bendamustine/Rituxan showed good response with spleen size decreased to 13.8 cm Status post cholecystectomy Thrombocytopenia, platelet count 55,000, mild anemia CT PET scan done on 09/06/2018 showed abnormal increased activity within significantly enlarged spleen Increase activity in lymph nodes in the left axilla, right hilum and subcarinal area and right and left groin consistent with lymphoma B symptoms, including drenching night sweats, recurrent chills, weight loss, discussed with patient his disease status and treatment options patient has significant B symptoms severe enough to interfere in his day to day activity, and bothersome progressive generalized weakness and fatigue,, abdominal fullness due to massive spleen. Thrombocytopenia/anemia appears multifactorial including due to hypersplenism and or bone marrow infiltration with follicular lymphoma cell and/or autoimmune Treatment options were discussed in detail including bendamustine/Rituxan regimen as recommended by Dr. Contreras, medical oncologist in [place].we are in agreement with that treatment plan. He was started on prednisone in the interim as well as allopurinol for tumor lysis. A hepatitis profile was negative. Mr. Arzola began his first cycle of bendamustine and Rituxan on 09/17/2018.Completed four doses of bendamustine/Rituxan on 12/17/2018 follow-up CT PET scan done on 01/14/2019 showed pronounced improvement with minimal activity in the spleen and essentially no abnormal activity seen in the lymph nodes Completed 4 cycles of bendamustine/Rituxan on 12/18/2018, now being started on maintenance Rituxan 375 mg/m??? every 2 months ???12 doses on 03/11/2019 Plan: Discussed with patient regarding his labs white blood count 4.5 hemoglobin 13.5 hematocrit 41.4 platelets 102,000 CMP within normal limit except sodium 135 glucose 132 Clinically, patient doing well with no new signs symptom suggestive of recurrence of disease, no peripheral lymphadenopathy lab work-up is within normal range except mild thrombocytopenia etiology unclear, will continue monitor, in the meantime we will proceed with the next maintenance dose of Rituxan today Return to clinic in 2 months with CBC CMP and LDH and for Rituxan Signed By: Awa Villafuerte M.D. <<Signature on File>>
== END 2020-08-04 08:42 | disposition home or self-care (01) ==
LOC: ONCMED 08:45
PROVIDERS: PCP Family Medicine; Visit Provider Internal Medicine Hematology & Oncology
DX: Z51.12 Encounter for antineoplastic immunotherapy (principal); C82.98 Follicular lymphoma, unspecified, lymph nodes of multiple sites; D69.6 Thrombocytopenia, unspecified; Z79.899 Other long term (current) drug therapy
CPT/HCPCS: 80053; 85025; 96413; 96415; 99214; J7040; J9312

== ENCOUNTER 2020-10-04 08:50 | Outpatient (CLI) | payer MEDICARE, BC, SELFPAY ==
[2020-10-04 10:07] LABS: Basophils % 0.4 %; Eosinophils # 0.2 10^3/uL (0.0-0.8); Eosinophils % 3.1 %; Hematocrit 41.9 % (42.0-52.0); Lymphocytes # 0.3 10^3/uL (0.8-4.8); Mean Corpuscular HGB Conc 33.4 g/dL (30.0-36.0); Mean Corpuscular Hemoglobin 29.9 pg (28.0-34.0); Mean Corpuscular Volume 89.5 fL (80-94); Mean Platelet Volume 11.2 fL (7.4-10.4); Monocytes # 0.5 10^3/uL (0.2-0.9); Monocytes % 10.3 %; Neutrophils # 3.81 10^3/uL (1.8-7.7); Neutrophils % 78.8 %; Nucleated Red Blood Cells % 0 %; Platelet Count 154 10^3/cmm (130-400); Red Blood Count 4.68 10^6/uL (4.1-5.3); Red Cell Distribution Width 12.2 % (12.1-15.1); White Blood Count 4.8 10^3/uL (4.0-10.0)
[2020-10-04 10:25] LABS: Alanine Aminotransferase 29 U/L (0-41); Albumin Level 3.9 g/dL (3.5-5.2); Alkaline Phosphatase 95 IU/L (40-130); Anion Gap 12.1 (5-19); Aspartate Amino Transferase 36 U/L (0-40); Blood Urea Nitrogen 11 mg/dL (8-23); Calcium 8.4 mg/dL (8.5-10.5); Carbon Dioxide 26 mmol/L (22-29); Chloride 99 mmol/L (98-107); Globulin 2.2 g/dL (1.3-4.6); Glucose 145 mg/dL (65-115); Osmolality Calculated 280 mOsm/kg (285-295); Potassium 3.1 mmol/L (3.5-5.1); Sodium 134 mmol/L (136-145); Total Bilirubin 0.7 mg/dL (0.15-1.2); Total Protein 6.1 g/dL (6.6-8.7)
[2020-10-04] MEDS: acetaminophen 325 mg Tablet 650 MG PO (11:10)
[2020-10-04] MEDS: diphenhydrAMINE 25 mg Capsule PO (11:10)
[2020-10-04] MEDS: sodium chloride 0.9% 500 ML 75 ML IV (11:35)
--- NOTE | 2020-10-04 13:09 | ONC FU_ITS ---
Dr. Villafuerte follow up note Patient: Eugenio Arzola Unit #: [id number]: 1955 Dicatated By: Awa Villafuerte M.D.Date of Visit:Oct 04, 2020 Onc Med Follow-up/Prog Note History of Present Illness: 5MrEugene Arzola is a 65 year-old gentleman with about six-month history of progressive generalized weakness and recurrent fever and chills. He was treated with antibiotics for presumed bronchitis with no relief. He had drenching night sweats for the last 2 months and weight loss about 20 pounds in the last 3-4 months. As per family/sister report, Mr Arzola started having nausea vomiting for which he underwent CT scan of chest abdomen and pelvis on 08/07/2018 which showed prominent splenomegaly with spleen size about 22 cm, wedge-shaped low density abnormality in the upper spleen. Postcholecystectomy. CT scan of head was done on 08/07/2018 showed no abnormality Stress test done showed ejection fraction 70%, normal Cardiolite stress test His follow-up lab workup done in his PMDs office shows mild anemia and moderate thrombocytopenia, platelet count was 55,000 with hemoglobin 11 white blood count 6.4 patient was referred to Dr. Contreras medical oncologist in [place], bone marrow evaluation was done on 08/22/2018 showed 20% lymphocytes, flow cytometry showed a seated 10+ be lineage non-Hodgkin lymphoma of small cell size consistent with follicular's lymphoma, cytogenetic was unremarkable, normal male karyotype CT PET scan was done on 08/09/2018 showed abnormal increase activity within a significantly enlarged spleen. Increase activity in lymph nodes in the left axilla, right hilum and subcarinal area and right and left groins consistent with lymphoma Small left pleural effusion JAK2 mutation was negative Dr. Contreras, medical oncologist recommended bendamustine and Rituxan chemotherapy but patient lives close to [place], so he decided to transfer his care to cancer Center in [place]. Mr. Arzola began his first cycle of bendamustine/Rituxan on 09/17/2018.Completed four doses of bendamustine/Rituxan on 12/17/2018 Abdominal sonogram done on 10/31/2018 showed spleen measures 13.8 cm x 5.9 x 4.9 cm, echotexture of the spleen is otherwise normal Compared to CT scan of abdomen done prior to the treatment which showed spleen was 22 cm Follow-up CT PET scan done on 01/14/2019 showed pronounced improvement with minimal activity in the spleen and essentially no abnormal activity seen in the lymph nodes Completed 4 cycles of chemotherapy with bendamustine/Rituxan on 12/18/2018 and now being started on maintenance Rituxan 375 mg/m??? every 3 months ???12 doses on 03/11/2019Long-standing e.g. since childhood, History of presyncopal attack and also in other 10 siblings. Mother used to have similar episodes. None of the family member investigated for the cause. On 05/13/2019, during blood drawn for lab workup patient developed presyncopal attack for which she was sent to [facility] where he had CTA pulmonary, showed no evidence of pulmonary embolus X Also had carotid Doppler study which showed normal Doppler flow on both sides. tolerating maintenance dose with Rituxan well Came for follow-up, denies any specific complaints, no fever chills, no nausea or vomiting, no night sweats, no weight loss, no peripheral lymphadenopathy, no abdominal fullness, appetite is good, no jaundice, no skin rash, tolerating maintenance dose with Rituxan well Medications: Aspirin 1 Tablet (of 81 mg) Oral daily, Levothyroxine Sodium 1 Tablet (of 100 mcg) Oral daily, Losartan Potassium 1 Tablet (of 50 mg) Oral daily, Melatonin 1 Tablet (of 10 mg) Oral at bedtime, Simvastatin 1 Tablet (of 20 mg) Oral at bedtime Allergies: No Known Allergies. Review of Systems: Review of Systems is not available for this patient. Vital Signs: Vitals are not available for this patient. Performance Status: 0 - Fully active, able to carry on all predisease activities without restrictions. (ECOG) Physical Examination: ENMT - No mouth sores, no thrush, no jaundice, no cervical lymphadenopathy, Respiratory - Lungs are clear to auscultation, Cardiovascular - Regular rate and rhythm of heart , Abdomen - , Soft, bowel sounds present, Extremities - No visible edema. Lab/Imaging: Test performed on Aug 04, 2020 09:44 Sodium 135 mmol/L Potassium 3.5 mmol/L Chloride 101 mmol/L CO2 23 mmol/L Anion Gap 14.5 BUN 9 mg/dL Creatinine 0.9 mg/dL Cr Clearance (Est) 118.7600 mL/min eGFR 84.7 mL/min Glucose 132 mg/dL Osmolality - Calculated 281 mOsm/kg Calcium 8.8 mg/dL Protein, Total 5.9 g/dL Albumin 3.8 g/dL Globulin 2.1 g/dL Bilirubin, Total 0.8 mg/dL ALT (SGPT) 27 U/L AST (SGOT) 28 U/L Alkaline Phosphatase 98 IU/L WBC 4.5 10 3/uL RBC 4.51 10 6/uL HGB 13.5 g/dL HCT 41.4 % MCV 91.8 fL MCH 29.9 pg MCHC 32.6 g/dL RDW 12.1 % Platelet Count 102 10 3/cmm MPV 10.5 fL Neutrophils 3.57 10 3/uL Lymphocytes 0.4 10 3/uL Monocytes 0.5 10 3/uL Eosinophils 0.1 10 3/uL Basophils 0.0 10 3/uL Neutrophil % 78.7 % Lymphocyte % 7.9 % Monocyte % 9.9 % Eosinophil % 2.6 % Basophils % 0.7 % NRBC % 0 % CBC Slide Review Slide Review Perform SLIDE REVIEW AGREES WITH AUTOMATED RESULTS ST Impression: Follicular lymphoma per bone marrow biopsy done on 08/22/2018 showed 20% lymphocytes, flow cytometry reveals a CD10 positive, B lineage non-Hodgkin's lymphoma of small cell size consistent with follicular lymphoma Cytogenetics showed normal male karyotype CT scan of chest abdomen pelvis on 08/07/2018 showed prominent splenomegaly with the spleen measuring at least 22 cm Follow-up ultrasound abdomen done on 10/31/2018 after 2 cycles of bendamustine/Rituxan showed good response with spleen size decreased to 13.8 cm Status post cholecystectomy Thrombocytopenia, platelet count 55,000, mild anemia CT PET scan done on 09/06/2018 showed abnormal increased activity within significantly enlarged spleen Increase activity in lymph nodes in the left axilla, right hilum and subcarinal area and right and left groin consistent with lymphoma B symptoms, including drenching night sweats, recurrent chills, weight loss, discussed with patient his disease status and treatment options patient has significant B symptoms severe enough to interfere in his day to day activity, and bothersome progressive generalized weakness and fatigue,, abdominal fullness due to massive spleen. Thrombocytopenia/anemia appears multifactorial including due to hypersplenism and or bone marrow infiltration with follicular lymphoma cell and/or autoimmune Treatment options were discussed in detail including bendamustine/Rituxan regimen as recommended by Dr. Contreras, medical oncologist in [place].we are in agreement with that treatment plan. He was started on prednisone in the interim as well as allopurinol for tumor lysis. A hepatitis profile was negative. Mr. Arzola began his first cycle of bendamustine and Rituxan on 09/17/2018.Completed four doses of bendamustine/Rituxan on 12/17/2018 follow-up CT PET scan done on 01/14/2019 showed pronounced improvement with minimal activity in the spleen and essentially no abnormal activity seen in the lymph nodes Completed 4 cycles of bendamustine/Rituxan on 12/18/2018, now being started on maintenance Rituxan 375 mg/m??? every 2 months ???12 doses on 03/11/2019 Plan: Discussed with patient regarding his labs white blood count 4.8 hemoglobin 14 hematocrit 41.9 platelets 154,000 compared to 102,000 previously CMP available report shows creatinine within normal limits liver function test within normal limits Clinically, patient doing well with no new signs suggestive of recurrence of disease, no B symptoms his lab work-up is within normal range is mild thrombocytopenia now resolved, will proceed with next 2 monthly dose of Rituxan today then he will return to clinic in 2 months with CBC CMP and LDH and for next dose of Rituxan. Signed By: Awa Villafuerte M.D. <<Signature on File>>
== END 2020-10-04 08:51 | disposition home or self-care (01) ==
LOC: ONCMED 08:52
PROVIDERS: PCP Family Medicine; Visit Provider Internal Medicine Hematology & Oncology
DX: Z51.12 Encounter for antineoplastic immunotherapy (principal); C82.90 Follicular lymphoma, unspecified, unspecified site; Z79.899 Other long term (current) drug therapy
CPT/HCPCS: 80053; 85025; 96413; 96415; 99214; J7040; J9312

== ENCOUNTER 2020-12-06 09:01 | Outpatient (CLI) | payer MEDICARE, BC, SELFPAY ==
[2020-12-06 09:53] LABS: Basophils % 0.5 %; Eosinophils # 0.1 10^3/uL (0.0-0.8); Eosinophils % 0.7 %; Hemoglobin 15.3 g/dL (11.7-16.6); Lymphocytes # 0.7 10^3/uL (0.8-4.8); Lymphocytes % 8.4 %; Mean Corpuscular HGB Conc 33.3 g/dL (30.0-36.0); Mean Corpuscular Volume 90.2 fL (80-94); Mean Platelet Volume 10.7 fL (7.4-10.4); Monocytes # 0.6 10^3/uL (0.2-0.9); Monocytes % 7.4 %; Neutrophils % 82.3 %; Nucleated Red Blood Cells % 0 %; Platelet Count 165 10^3/cmm (130-400); Red Cell Distribution Width 12.4 % (12.1-15.1); White Blood Count 8.5 10^3/uL (4.0-10.0)
[2020-12-06 10:18] LABS: Alanine Aminotransferase 15 U/L (0-41); Albumin Level 3.9 g/dL (3.5-5.2); Alkaline Phosphatase 82 IU/L (40-130); Anion Gap 14.5 (5-19); Aspartate Amino Transferase 17 U/L (0-40); Blood Urea Nitrogen 17 mg/dL (8-23); Calcium 8.6 mg/dL (8.5-10.5); Carbon Dioxide 23 mmol/L (22-29); Chloride 102 mmol/L (98-107); Globulin 2.2 g/dL (1.3-4.6); Glomerular Filtration Rate 84.7 mL/min (90-130); Glucose 103 mg/dL (65-115); Lactate Dehydrogenase 126 U/L (135-225); Osmolality Calculated 284 mOsm/kg (285-295); Potassium 3.5 mmol/L (3.5-5.1); Sodium 136 mmol/L (136-145); Total Bilirubin 0.8 mg/dL (0.15-1.2); Total Protein 6.1 g/dL (6.6-8.7)
[2020-12-06] MEDS: diphenhydrAMINE 25 mg Capsule PO (11:50)
[2020-12-06] MEDS: acetaminophen 325 mg Tablet 650 MG PO (11:50)
[2020-12-06] MEDS: sodium chloride 0.9% 500 ML 75 ML IV (12:52)
--- NOTE | 2020-12-06 17:36 | ONC FU_ITS ---
Dr. Villafuerte follow up note Patient: Eugenio Arzola Unit #: [id number]: 1955 Dicatated By: Awa Villafuerte M.D.Date of Visit:Dec 06, 2020 Onc Med Follow-up/Prog Note History of Present Illness: 5MruEgene Arzola is a 65 year-old gentleman with about six-month history of progressive generalized weakness and recurrent fever and chills. He was treated with antibiotics for presumed bronchitis with no relief. He had drenching night sweats for the last 2 months and weight loss about 20 pounds in the last 3-4 months. As per family/sister report, Mr Arzola started having nausea vomiting for which he underwent CT scan of chest abdomen and pelvis on 08/07/2018 which showed prominent splenomegaly with spleen size about 22 cm, wedge-shaped low density abnormality in the upper spleen. Postcholecystectomy. CT scan of head was done on 08/07/2018 showed no abnormality Stress test done showed ejection fraction 70%, normal Cardiolite stress test His follow-up lab workup done in his PMDs office shows mild anemia and moderate thrombocytopenia, platelet count was 55,000 with hemoglobin 11 white blood count 6.4 patient was referred to Dr. Contreras medical oncologist in [place], bone marrow evaluation was done on 08/22/2018 showed 20% lymphocytes, flow cytometry showed a seated 10+ be lineage non-Hodgkin lymphoma of small cell size consistent with follicular's lymphoma, cytogenetic was unremarkable, normal male karyotype CT PET scan was done on 08/09/2018 showed abnormal increase activity within a significantly enlarged spleen. Increase activity in lymph nodes in the left axilla, right hilum and subcarinal area and right and left groins consistent with lymphoma Small left pleural effusion JAK2 mutation was negative Dr. Contreras, medical oncologist recommended bendamustine and Rituxan chemotherapy but patient lives close to [place], so he decided to transfer his care to cancer Center in [place]. Mr. Arzola began his first cycle of bendamustine/Rituxan on 09/17/2018.Completed four doses of bendamustine/Rituxan on 12/17/2018 Abdominal sonogram done on 10/31/2018 showed spleen measures 13.8 cm x 5.9 x 4.9 cm, echotexture of the spleen is otherwise normal Compared to CT scan of abdomen done prior to the treatment which showed spleen was 22 cm Follow-up CT PET scan done on 01/14/2019 showed pronounced improvement with minimal activity in the spleen and essentially no abnormal activity seen in the lymph nodes Completed 4 cycles of chemotherapy with bendamustine/Rituxan on 12/18/2018 and now being started on maintenance Rituxan 375 mg/m??? every 3 months ???12 doses on 03/11/2019Long-standing e.g. since childhood, History of presyncopal attack and also in other 10 siblings. Mother used to have similar episodes. None of the family member investigated for the cause. On 05/13/2019, during blood drawn for lab workup patient developed presyncopal attack for which she was sent to [facility] where he had CTA pulmonary, showed no evidence of pulmonary embolus X Also had carotid Doppler study which showed normal Doppler flow on both sides. tolerating maintenance dose with Rituxan well Came for follow-up, denies any specific complaints, no fever chills, no nausea or vomiting, no diarrhea constipation, no night sweats, no peripheral lymphadenopathy, no recurrent fever, no weight loss, no skin rash, no jaundice, no shortness of breath Medications: Aspirin 1 Tablet (of 81 mg) Oral daily, Levothyroxine Sodium 1 Tablet (of 100 mcg) Oral daily, Losartan Potassium 1 Tablet (of 50 mg) Oral daily, Melatonin 1 Tablet (of 10 mg) Oral at bedtime, Simvastatin 1 Tablet (of 20 mg) Oral at bedtime Allergies: No Known Allergies. Review of Systems: Review of Systems is not available for this patient. Vital Signs: Performed on Dec 06, 2020 11:03 Height - 69.00 in Weight - 218.8 lbs (LOW) BSA - 2.15 sq.m BMI - 32.31 (HIGH) Temperature - 96.8 F (LOW) Pulse - 57 /min (LOW) Respiration - 18 /min BP - 122/77 mm(hg) O2 Sat - 98 % Pain - 0 Performance Status: 0 - Fully active, able to carry on all predisease activities without restrictions. (ECOG) Physical Examination: ENMT - No mouth sores, no thrush, no jaundice no cervical or axillary lymphadenopathy, Respiratory - Lungs are clear to auscultation, Cardiovascular - Regular rate and rhythm of heart, Abdomen - Soft, bowel sounds present, Extremities - No visible edema. Lab/Imaging: Test performed on Aug 04, 2020 09:44 Sodium 135 mmol/L Potassium 3.5 mmol/L Chloride 101 mmol/L CO2 23 mmol/L Anion Gap 14.5 BUN 9 mg/dL Creatinine 0.9 mg/dL Cr Clearance (Est) 118.7600 mL/min eGFR 84.7 mL/min Glucose 132 mg/dL Osmolality - Calculated 281 mOsm/kg Calcium 8.8 mg/dL Protein, Total 5.9 g/dL Albumin 3.8 g/dL Globulin 2.1 g/dL Bilirubin, Total 0.8 mg/dL ALT (SGPT) 27 U/L AST (SGOT) 28 U/L Alkaline Phosphatase 98 IU/L WBC 4.5 10 3/uL RBC 4.51 10 6/uL HGB 13.5 g/dL HCT 41.4 % MCV 91.8 fL MCH 29.9 pg MCHC 32.6 g/dL RDW 12.1 % Platelet Count 102 10 3/cmm MPV 10.5 fL Neutrophils 3.57 10 3/uL Lymphocytes 0.4 10 3/uL Monocytes 0.5 10 3/uL Eosinophils 0.1 10 3/uL Basophils 0.0 10 3/uL Neutrophil % 78.7 % Lymphocyte % 7.9 % Monocyte % 9.9 % Eosinophil % 2.6 % Basophils % 0.7 % NRBC % 0 % CBC Slide Review Slide Review Perform SLIDE REVIEW AGREES WITH AUTOMATED RESULTS ST Impression: Follicular lymphoma per bone marrow biopsy done on 08/22/2018 showed 20% lymphocytes, flow cytometry reveals a CD10 positive, B lineage non-Hodgkin's lymphoma of small cell size consistent with follicular lymphoma Cytogenetics showed normal male karyotype CT scan of chest abdomen pelvis on 08/07/2018 showed prominent splenomegaly with the spleen measuring at least 22 cm Follow-up ultrasound abdomen done on 10/31/2018 after 2 cycles of bendamustine/Rituxan showed good response with spleen size decreased to 13.8 cm Status post cholecystectomy Thrombocytopenia, platelet count 55,000, mild anemia CT PET scan done on 09/06/2018 showed abnormal increased activity within significantly enlarged spleen Increase activity in lymph nodes in the left axilla, right hilum and subcarinal area and right and left groin consistent with lymphoma B symptoms, including drenching night sweats, recurrent chills, weight loss, discussed with patient his disease status and treatment options patient has significant B symptoms severe enough to interfere in his day to day activity, and bothersome progressive generalized weakness and fatigue,, abdominal fullness due to massive spleen. Thrombocytopenia/anemia appears multifactorial including due to hypersplenism and or bone marrow infiltration with follicular lymphoma cell and/or autoimmune Treatment options were discussed in detail including bendamustine/Rituxan regimen as recommended by Dr. Contreras, medical oncologist in [place].we are in agreement with that treatment plan. He was started on prednisone in the interim as well as allopurinol for tumor lysis. A hepatitis profile was negative. Mr. Arzola began his first cycle of bendamustine and Rituxan on 09/17/2018.Completed four doses of bendamustine/Rituxan on 12/17/2018 follow-up CT PET scan done on 01/14/2019 showed pronounced improvement with minimal activity in the spleen and essentially no abnormal activity seen in the lymph nodes Completed 4 cycles of bendamustine/Rituxan on 12/18/2018, now being started on maintenance Rituxan 375 mg/m??? every 2 months ???12 doses on 03/11/2019 Plan: Discussed with patient regarding his labs white blood count 8.5 hemoglobin 15 point hematocrit 46 platelets under 65,000 CMP, including LDH within normal limits Clinically, patient doing well with no new signs symptoms suggestive of recurrence of disease, no B symptoms, no peripheral lymphadenopathy, no organomegaly, tolerating maintenance Rituxan well, today he will conclude his maintenance Rituxan, will proceed with next and final dose of Rituxan today and then he will return to clinic in 3 months with CBC CMP and LDH, if stays stable then will change follow-up to every 6 months Signed By: Awa Villafuerte M.D. <<Signature on File>>
== END 2020-12-06 09:02 | disposition home or self-care (01) ==
PROVIDERS: PCP Family Medicine; Visit Provider Internal Medicine Hematology & Oncology
DX: Z51.12 Encounter for antineoplastic immunotherapy (principal); C82.97 Follicular lymphoma, unspecified, spleen; Z90.49 Acquired absence of other specified parts of digestive tract; D69.6 Thrombocytopenia, unspecified
CPT/HCPCS: 80053; 83615; 85025; 96413; 96415; 99215; J7040; J9312

== ENCOUNTER 2021-03-08 14:53 | Outpatient (CLI) | payer MEDICARE, BC, SELFPAY ==
[2021-03-08 16:30] LABS: Basophils % 0.8 %; Eosinophils # 0.1 10^3/uL (0.0-0.8); Eosinophils % 1.4 %; Hematocrit 46.7 % (42.0-52.0); Hemoglobin 15.1 g/dL (11.7-16.6); Lymphocytes # 0.6 10^3/uL (0.8-4.8); Lymphocytes % 11.1 %; Mean Corpuscular HGB Conc 32.3 g/dL (30.0-36.0); Mean Corpuscular Hemoglobin 30.4 pg (28.0-34.0); Mean Corpuscular Volume 94.2 fl (80-94); Mean Platelet Volume 10.9 fL (7.4-10.4); Monocytes # 0.7 10^3/uL (0.2-0.9); Monocytes % 13.3 %; Neutrophils % 73.2 %; Nucleated Red Blood Cells % 0 %; Platelet Count 178 10^3/cmm (130-400); Red Blood Count 4.96 10^6/uL (4.1-5.3); Red Cell Distribution Width 12.3 % (12.1-15.1); White Blood Count 5.1 10^3/uL (4.0-10.0)
[2021-03-08 17:12] LABS: Alanine Aminotransferase 22 U/L (0-41); Alkaline Phosphatase 90 IU/L (40-130); Anion Gap 16.8 (5-19); Aspartate Amino Transferase 30 U/L (0-40); Blood Urea Nitrogen 9 mg/dL (8-23); Calcium 8.7 mg/dL (8.5-10.5); Carbon Dioxide 24 mmol/L (22-29); Chloride 103 mmol/L (98-107); Globulin 2.2 g/dL (1.3-4.6); Glomerular Filtration Rate 84.7 mL/min (90-130); Glucose 80 mg/dL (65-115); Lactate Dehydrogenase 165 U/L (135-225); Osmolality Calculated 288 mOsm/kg (285-295); Potassium 3.8 mmol/L (3.5-5.1); Sodium 140 mmol/L (136-145); Total Bilirubin 0.5 mg/dL (0.15-1.2); Total Protein 6.2 g/dL (6.6-8.7)
== END 2021-03-08 14:54 | disposition home or self-care (01) ==
LOC: ONCMED 14:58
PROVIDERS: PCP Family Medicine; Visit Provider Internal Medicine Hematology & Oncology
DX: C82.88 Other types of follicular lymphoma, lymph nodes of multiple sites (principal)
CPT/HCPCS: 36415; 80053; 83615; 85025

== ENCOUNTER 2021-03-10 06:02 | Outpatient (CLI) | payer MEDICARE, BC, SELFPAY ==
--- NOTE | 2021-03-11 13:47 | ONC FU_ITS ---
Dr. Villafuerte follow up note Patient: Eugenio Arzola Unit #: [id number]: 1955 Dicatated By: Awa Villafuerte M.D.Date of Visit:Mar 10, 2021 Onc Med Follow-up/Prog Note History of Present Illness: 5MrEugene Arzola is a 65 year-old gentleman with about six-month history of progressive generalized weakness and recurrent fever and chills. He was treated with antibiotics for presumed bronchitis with no relief. He had drenching night sweats for the last 2 months and weight loss about 20 pounds in the last 3-4 months. As per family/sister report, Mr Arzola started having nausea vomiting for which he underwent CT scan of chest abdomen and pelvis on 08/07/2018 which showed prominent splenomegaly with spleen size about 22 cm, wedge-shaped low density abnormality in the upper spleen. Postcholecystectomy. CT scan of head was done on 08/07/2018 showed no abnormality Stress test done showed ejection fraction 70%, normal Cardiolite stress test His follow-up lab workup done in his PMDs office shows mild anemia and moderate thrombocytopenia, platelet count was 55,000 with hemoglobin 11 white blood count 6.4 patient was referred to Dr. Contreras medical oncologist in [place], bone marrow evaluation was done on 08/22/2018 showed 20% lymphocytes, flow cytometry showed a seated 10+ be lineage non-Hodgkin lymphoma of small cell size consistent with follicular's lymphoma, cytogenetic was unremarkable, normal male karyotype CT PET scan was done on 08/09/2018 showed abnormal increase activity within a significantly enlarged spleen. Increase activity in lymph nodes in the left axilla, right hilum and subcarinal area and right and left groins consistent with lymphoma Small left pleural effusion JAK2 mutation was negative Dr. Contreras, medical oncologist recommended bendamustine and Rituxan chemotherapy but patient lives close to [place], so he decided to transfer his care to cancer Center in [place]. Mr. Arzola began his first cycle of bendamustine/Rituxan on 09/17/2018.Completed four doses of bendamustine/Rituxan on 12/17/2018 Abdominal sonogram done on 10/31/2018 showed spleen measures 13.8 cm x 5.9 x 4.9 cm, echotexture of the spleen is otherwise normal Compared to CT scan of abdomen done prior to the treatment which showed spleen was 22 cm Follow-up CT PET scan done on 01/14/2019 showed pronounced improvement with minimal activity in the spleen and essentially no abnormal activity seen in the lymph nodes Completed 4 cycles of chemotherapy with bendamustine/Rituxan on 12/18/2018 and now being started on maintenance Rituxan 375 mg/m??? every 3 months ???12 doses on 03/11/2019 And completed maintenance therapy on December 06, 2020 Long-standing e.g. since childhood, History of presyncopal attack and also in other 10 siblings. Mother used to have similar episodes. None of the family member investigated for the cause. On 05/13/2019, during blood drawn for lab workup patient developed presyncopal attack for which she was sent to [facility] where he had CTA pulmonary, showed no evidence of pulmonary embolus X Also had carotid Doppler study which showed normal Doppler flow on both sides. Came for follow-up, denies any specific complaints, no fever chills, no nausea or vomiting, no diarrhea or constipation, no night sweats, no weight loss,, no recurrent fever, no peripheral lymphadenopathy or abdominal fullness, denies any generalized weakness and fatigue Medications: Aspirin 1 Tablet (of 81 mg) Oral daily, Levothyroxine Sodium 1 Tablet (of 100 mcg) Oral daily, Losartan Potassium 1 Tablet (of 50 mg) Oral daily, Melatonin 1 Tablet (of 10 mg) Oral at bedtime, Simvastatin 1 Tablet (of 20 mg) Oral at bedtime Allergies: No Known Allergies. Review of Systems: Review of Systems is not available for this patient. Vital Signs: Performed on Mar 10, 2021 14:20 Height - 69.00 in Weight - 219 lbs (HIGH) BSA - 2.15 sq.m BMI - 32.34 (HIGH) Temperature - 97.8 F (LOW) Pulse - 69 /min Respiration - 18 /min BP - 122/79 mm(hg) O2 Sat - 96 % Pain - 0 Fatigue - 0 Performance Status: 0 - Fully active, able to carry on all predisease activities without restrictions. (ECOG) Physical Examination: ENMT - No mouth sores, no thrush, no cervical or axillary lymphadenopathy, Respiratory - Lungs are clear to auscultation, Cardiovascular - Regular rate and rhythm of heart, Abdomen - Soft, bowel sounds present, Extremities - No visible edema. Lab/Imaging: Most recent lab results are not available for this patient. Impression: Follicular lymphoma per bone marrow biopsy done on 08/22/2018 showed 20% lymphocytes, flow cytometry reveals a CD10 positive, B lineage non-Hodgkin's lymphoma of small cell size consistent with follicular lymphoma Cytogenetics showed normal male karyotype CT scan of chest abdomen pelvis on 08/07/2018 showed prominent splenomegaly with the spleen measuring at least 22 cm Follow-up ultrasound abdomen done on 10/31/2018 after 2 cycles of bendamustine/Rituxan showed good response with spleen size decreased to 13.8 cm Status post cholecystectomy Thrombocytopenia, platelet count 55,000, mild anemia CT PET scan done on 09/06/2018 showed abnormal increased activity within significantly enlarged spleen Increase activity in lymph nodes in the left axilla, right hilum and subcarinal area and right and left groin consistent with lymphoma B symptoms, including drenching night sweats, recurrent chills, weight loss, discussed with patient his disease status and treatment options patient has significant B symptoms severe enough to interfere in his day to day activity, and bothersome progressive generalized weakness and fatigue,, abdominal fullness due to massive spleen. Thrombocytopenia/anemia appears multifactorial including due to hypersplenism and or bone marrow infiltration with follicular lymphoma cell and/or autoimmune Treatment options were discussed in detail including bendamustine/Rituxan regimen as recommended by Dr. Contreras, medical oncologist in [place].we are in agreement with that treatment plan. He was started on prednisone in the interim as well as allopurinol for tumor lysis. A hepatitis profile was negative. Mr. Arzola began his first cycle of bendamustine and Rituxan on 09/17/2018.Completed four doses of bendamustine/Rituxan on 12/17/2018 follow-up CT PET scan done on 01/14/2019 showed pronounced improvement with minimal activity in the spleen and essentially no abnormal activity seen in the lymph nodes Completed 4 cycles of bendamustine/Rituxan on 12/18/2018, now being started on maintenance Rituxan 375 mg/m??? every 2 months ???12 doses on 03/11/2019, Completed on December 06, 2020 Plan: Discussed with patient regarding his labs white blood count 5.1 hemoglobin 15.1 hematocrit 46.7 platelets 178,000 CMP within normal limits LDH 165 Clinically, patient doing well with no B symptoms or other symptoms suggestive of recurrence of disease, on exam there is no evidence of peripheral lymphadenopathy, his lab work-up including LDH is within normal range Patient has completed his maintenance therapy with Rituxan. Now we will observe him and return to clinic in 6 months with CBC CMP, LDH as well as follow-up CT scan of chest abdomen pelvis, patient was advised to call us in case he has any evidence of night sweats, recurrent fever or weight loss or peripheral lymphadenopathy otherwise return to clinic in 6 months as mentioned above Signed By: Awa Villafuerte M.D. <<Signature on File>>
== END 2021-03-10 06:03 | disposition home or self-care (01) ==
PROVIDERS: PCP Family Medicine; Visit Provider Internal Medicine Hematology & Oncology
DX: C82.98 Follicular lymphoma, unspecified, lymph nodes of multiple sites (principal); Z79.82 Long term (current) use of aspirin; Z79.890 Hormone replacement therapy; Z79.899 Other long term (current) drug therapy
CPT/HCPCS: 99214

== ENCOUNTER 2021-09-05 09:19 | Outpatient (CLI) | payer MEDICARE, BC, SELFPAY ==
--- NOTE | 2021-09-05 09:53 | CT_ITS ---
WS: [id number] CT CHEST, ABDOMEN, AND PELVIS TECHNIQUE: Contrast-enhanced CT of the chest, abdomen, and pelvis with coronal and sagittal reformatt ed images. CLINICAL INFORMATION: LYMPHOMA COMPARISON: CTA chest and PET/CT September 06, 2018 DLP: 1934.[address] scans at [facility] use at least one of these dose optimization techniques: automated e xposure control; mA and/or kV adjustment per patient size (includes targeted exams where dose is matc hed to clinical indication); or iterative reconstruction. CT CHEST: Both lungs are well aerated. No acute pulmonary infiltrates. No focal pneumonia or pleural fluid. Sub segmental atelectasis RIGHT lower lobe. A few calcified granulomas. Normal caliber thoracic aorta. No mediastinal or hilar lymphadenopathy. Proximal main pulmonary arter ies are normal. No axillary lymphadenopathy. CT ABDOMEN AND PELVIS: Diffuse fatty infiltration of the liver. Normal portal vein and splenic vein. Mild splenomegaly uncha nged since measuring 15.0 x 4.0 CM. Normal GE junction. Incidental cyst near the dome the liver measuring 11 mm. Fatty atrophy of the pancreas. Prior cholecystectomy. Normal portal vein and splenic vein. Normal hernandez iber abdominal aorta. Normal renal parenchymal enhancement. No hydronephrosis. Adrenal glands are nor mal. 11 mm cortical cyst RIGHT kidney. No hydronephrosis in either kidney. Enlarged prostate measuring 5.5 CM. Sigmoid diverticulosis. No evidence of acute diverticulitis. No e vidence of high-grade small or large bowel obstruction. Small fat-containing umbilical hernia. No ret roperitoneal or periaortic lymphadenopathy. No pelvic or inguinal lymphadenopathy. Mild disc space narrowing L5-S1. CT/CT chest abd pel w con* IMPRESSION: 1. No lymphadenopathy in the chest abdomen or pelvis. 2. Lungs are well aerated. No acute pulmonary infiltrates 3. Mild diffuse fatty infiltration of the liver. 4. Mild splenomegaly unchanged since but improved from 3 5. Prior cholecystectomy. 6. Prostate enlargement measuring 5.5 cm. Recommend correlation PSA.
[2021-09-05 11:38] LABS: Blood Urea Nitrogen 14 mg/dL (8-23)
[2021-09-05 11:39] LABS: Glomerular Filtration Rate 55.2 mL/min (90-130)
[2021-09-05] MEDS: iohexol 300 mg/mL 100 mL Btl IV (11:52)
[2021-09-05] MEDS: iohexol 300 mg/mL 50 mL Btl PO (11:52)
== END 2021-09-05 09:20 | disposition home or self-care (01) ==
LOC: RAD 09:20
PROVIDERS: PCP Family Medicine; Visit Provider Internal Medicine Hematology & Oncology
DX: C82.90 Follicular lymphoma, unspecified, unspecified site (principal); K76.0 Fatty (change of) liver, not elsewhere classified; R16.1 Splenomegaly, not elsewhere classified; N40.0 Benign prostatic hyperplasia without lower urinary tract symptoms; Z90.49 Acquired absence of other specified parts of digestive tract
CPT/HCPCS: 71260; 74177; 82565; 84520

== ENCOUNTER 2021-09-08 10:45 | Outpatient (CLI) | payer MEDICARE, BC, SELFPAY ==
[2021-09-08 11:41] LABS: Basophils % 0.4 %; Eosinophils # 0.1 10^3/uL (0.0-0.8); Eosinophils % 1.6 %; Hematocrit 43.6 % (42.0-52.0); Hemoglobin 14.9 g/dL (11.7-16.6); Lymphocytes # 0.4 10^3/uL (0.8-4.8); Lymphocytes % 8.9 %; Mean Corpuscular HGB Conc 34.2 g/dL (30.0-36.0); Mean Corpuscular Hemoglobin 29.7 pg (28.0-34.0); Mean Platelet Volume 10.4 fL (7.4-10.4); Monocytes # 0.5 10^3/uL (0.2-0.9); Neutrophils # 3.87 10^3/uL (1.8-7.7); Neutrophils % 78.7 %; Nucleated Red Blood Cells % 0 %; Platelet Count 164 10^3/cmm (130-400); Red Blood Count 5.01 10^6/uL (4.1-5.3); Red Cell Distribution Width 12.3 % (12.1-15.1); White Blood Count 4.9 10^3/uL (4.0-10.0)
[2021-09-08 11:55] LABS: Alanine Aminotransferase 35 U/L (0-41); Albumin Level 4.1 g/dL (3.5-5.2); Alkaline Phosphatase 82 IU/L (40-130); Anion Gap 15.8 (5-19); Aspartate Amino Transferase 47 U/L (0-40); Blood Urea Nitrogen 10 mg/dL (8-23); Calcium 9.3 mg/dL (8.5-10.5); Carbon Dioxide 23 mmol/L (22-29); Chloride 102 mmol/L (98-107); Globulin 2.2 g/dL (1.3-4.6); Glomerular Filtration Rate 84.4 mL/min (90-130); Glucose 167 mg/dL (65-115); Lactate Dehydrogenase 171 U/L (135-225); Osmolality Calculated 287 mOsm/kg (285-295); Potassium 3.8 mmol/L (3.5-5.1); Sodium 137 mmol/L (136-145); Total Bilirubin 0.7 mg/dL (0.15-1.2); Total Protein 6.3 g/dL (6.6-8.7)
--- NOTE | 2021-09-09 11:49 | ONC FU_ITS ---
Dr. Villafuerte follow up note Patient: Eugenio Arzola Unit #: [id number]: 1955 Dicatated By: Awa Villafuerte M.D.Date of Visit:Sep 08, 2021 Onc Med Follow-up/Prog Note History of Present Illness: 5MrEugene Arzola is a 66 year-old gentleman with about six-month history of progressive generalized weakness and recurrent fever and chills. He was treated with antibiotics for presumed bronchitis with no relief. He had drenching night sweats for the last 2 months and weight loss about 20 pounds in the last 3-4 months. As per family/sister report, Mr Arzola started having nausea vomiting for which he underwent CT scan of chest abdomen and pelvis on 08/07/2018 which showed prominent splenomegaly with spleen size about 22 cm, wedge-shaped low density abnormality in the upper spleen. Postcholecystectomy. CT scan of head was done on 08/07/2018 showed no abnormality Stress test done showed ejection fraction 70%, normal Cardiolite stress test His follow-up lab workup done in his PMDs office shows mild anemia and moderate thrombocytopenia, platelet count was 55,000 with hemoglobin 11 white blood count 6.4 patient was referred to Dr. Contreras medical oncologist in [place], bone marrow evaluation was done on 08/22/2018 showed 20% lymphocytes, flow cytometry showed a seated 10+ be lineage non-Hodgkin lymphoma of small cell size consistent with follicular's lymphoma, cytogenetic was unremarkable, normal male karyotype CT PET scan was done on 08/09/2018 showed abnormal increase activity within a significantly enlarged spleen. Increase activity in lymph nodes in the left axilla, right hilum and subcarinal area and right and left groins consistent with lymphoma Small left pleural effusion JAK2 mutation was negative Dr. Contreras, medical oncologist recommended bendamustine and Rituxan chemotherapy but patient lives close to [place], so he decided to transfer his care to cancer Center in [place]. Mr. Arzola began his first cycle of bendamustine/Rituxan on 09/17/2018.Completed four doses of bendamustine/Rituxan on 12/17/2018 Abdominal sonogram done on 10/31/2018 showed spleen measures 13.8 cm x 5.9 x 4.9 cm, echotexture of the spleen is otherwise normal Compared to CT scan of abdomen done prior to the treatment which showed spleen was 22 cm Follow-up CT PET scan done on 01/14/2019 showed pronounced improvement with minimal activity in the spleen and essentially no abnormal activity seen in the lymph nodes Completed 4 cycles of chemotherapy with bendamustine/Rituxan on 12/18/2018 and now being started on maintenance Rituxan 375 mg/m??? every 3 months ???12 doses on 03/11/2019 And completed maintenance therapy on December 06, 2020 Long-standing e.g. since childhood, History of presyncopal attack and also in other 10 siblings. Mother used to have similar episodes. None of the family member investigated for the cause. On 05/13/2019, during blood drawn for lab workup patient developed presyncopal attack for which she was sent to [facility] where he had CTA pulmonary, showed no evidence of pulmonary embolus X Also had carotid Doppler study which showed normal Doppler flow on both sides. Follow-up CT scan of chest abdomen pelvis done on September 05, 2021 showed no lymphadenopathy in chest abdomen pelvis. Mild diffuse fatty infiltration of the liver. Mild splenomegaly unchanged since May 2019 Came for follow-up, denies any specific complaints, no fever chills, no nausea or vomiting, no diarrhea or constipation, no night sweats, no weight loss, no recurrent fever, no peripheral lymphadenopathy, no abdominal fullness, appetite is good, no generalized weakness and fatigue. Medications: Aspirin 1 Tablet (of 81 mg) Oral daily, Levothyroxine Sodium 1 Tablet (of 100 mcg) Oral daily, Losartan Potassium 1 Tablet (of 50 mg) Oral daily, Melatonin 1 Tablet (of 10 mg) Oral at bedtime, Simvastatin 1 Tablet (of 20 mg) Oral at bedtime Allergies: No Known Allergies. Review of Systems: Review of Systems is not available for this patient. Vital Signs: Performed on Sep 08, 2021 14:34 Height - 69.00 in Weight - 229.2 lbs (HIGH) BSA - 2.19 sq.m BMI - 33.85 (HIGH) Temperature - 97.8 F (LOW) Pulse - 97 /min Respiration - 18 /min BP - 116/78 mm(hg) O2 Sat - 96 % Pain - 0 Fatigue - 3 Performance Status: 0 - Fully active, able to carry on all predisease activities without restrictions. (ECOG) Physical Examination: ENMT - No mouth sores, no thrush, no jaundice, no cervical lymphadenopathy, Respiratory - Lungs are clear to auscultation, Cardiovascular - Regular rate and rhythm of heart, Abdomen - Soft, bowel sounds present, Extremities - No visible edema. Lab/Imaging: Most recent lab results are not available for this patient. Impression: Follicular lymphoma per bone marrow biopsy done on 08/22/2018 showed 20% lymphocytes, flow cytometry reveals a CD10 positive, B lineage non-Hodgkin's lymphoma of small cell size consistent with follicular lymphoma Cytogenetics showed normal male karyotype CT scan of chest abdomen pelvis on 08/07/2018 showed prominent splenomegaly with the spleen measuring at least 22 cm Follow-up ultrasound abdomen done on 10/31/2018 after 2 cycles of bendamustine/Rituxan showed good response with spleen size decreased to 13.8 cm Status post cholecystectomy Thrombocytopenia, platelet count 55,000, mild anemia CT PET scan done on 09/06/2018 showed abnormal increased activity within significantly enlarged spleen Increase activity in lymph nodes in the left axilla, right hilum and subcarinal area and right and left groin consistent with lymphoma B symptoms, including drenching night sweats, recurrent chills, weight loss, discussed with patient his disease status and treatment options patient has significant B symptoms severe enough to interfere in his day to day activity, and bothersome progressive generalized weakness and fatigue,, abdominal fullness due to massive spleen. Thrombocytopenia/anemia appears multifactorial including due to hypersplenism and or bone marrow infiltration with follicular lymphoma cell and/or autoimmune Treatment options were discussed in detail including bendamustine/Rituxan regimen as recommended by Dr. Contreras, medical oncologist in [place].we are in agreement with that treatment plan. He was started on prednisone in the interim as well as allopurinol for tumor lysis. A hepatitis profile was negative. Mr. Arzola began his first cycle of bendamustine and Rituxan on 09/17/2018.Completed four doses of bendamustine/Rituxan on 12/17/2018 follow-up CT PET scan done on 01/14/2019 showed pronounced improvement with minimal activity in the spleen and essentially no abnormal activity seen in the lymph nodes Completed 4 cycles of bendamustine/Rituxan on 12/18/2018, now being started on maintenance Rituxan 375 mg/m??? every 2 months ???12 doses on 03/11/2019, Completed on December 06, 2020^ ]Follow-up CT scan of chest abdomen pelvis done on September 05, 2021 showed no lymphadenopathy in chest abdomen pelvis. Mild diffuse fatty infiltration of the liver. Mild splenomegaly unchanged since May 2019 Plan: Discussed with patient regarding his labs white blood count 4.9 hemoglobin 14.9 hematocrit 43.6 platelets 64,000 CMP within normal limit except glucose 167 and AST 47 Clinically, patient doing well with no B symptoms or peripheral lymphadenopathy on exam and lab work-up is also within normal range. And follow-up CT scan chest abdomen pelvis shows no evidence of disease but mild splenomegaly, stable. We will continue to monitor and he will return to clinic in 6 months with CBC CMP, LDH and CT scan of chest abdomen pelvis Mild hyperglycemia, patient was advised to watch his diet and follow-up with PMD, he may be prediabetic. Signed By: Awa Villafuerte M.D. <<Signature on File>>
== END 2021-09-08 10:46 | disposition home or self-care (01) ==
LOC: ONCMED 10:51
PROVIDERS: PCP Allergy & Immunology; Visit Provider Internal Medicine Hematology & Oncology
DX: C82.90 Follicular lymphoma, unspecified, unspecified site (principal); D69.6 Thrombocytopenia, unspecified; Z79.899 Other long term (current) drug therapy
CPT/HCPCS: 36415; 80053; 83615; 85025; 99214

== ENCOUNTER 2022-04-11 10:51 | Outpatient (CLI) | payer MEDICARE, BC, SELFPAY ==
--- NOTE | 2022-04-11 11:00 | CTR_ITS ---
PROCEDURE INFORMATION: Exam: CT Chest With Contrast; Diagnostic Exam date and time: 04/11/2022 12:05 PM Age: 67 years old Clinical indication: Condition or disease; Cancer; Other: Non hodgkins lymphoma; Follow-up oncological assessment; Prior surgery; Surgery type: Gb; Additional info: Follow up, cpt [id number] TECHNIQUE: Imaging protocol: Diagnostic computed tomography of the chest with contrast. Radiation optimization: All CT scans at this facility use at least one of these dose optimization techniques: automated exposure control; mA and/or kV adjustment per patient size (includes targeted exams where dose is matched to clinical indication); or iterative reconstruction. Contrast material: OMNI 350; Contrast volume: 95 ml; Contrast route: INTRAVENOUS (IV); COMPARISON: CT chest abd pel w con* 09/05/2021 11:52 AM RADIATION DOSE METRICS: Total DLP (mGy-cm): FINDINGS: Lungs: Bibasilar atelectasis. Pleural spaces: Unremarkable. No pneumothorax. No pleural effusion. Heart: Unremarkable. No cardiomegaly. No pericardial effusion. Lymph nodes: Unremarkable. No enlarged lymph nodes. Vasculature: Unremarkable. No aortic aneurysm. Bones/joints: Unremarkable. No acute fracture. Soft tissues: Unremarkable. PROCEDURE INFORMATION: Exam: CT Abdomen And Pelvis With Contrast Exam date and time: 04/11/2022 12:05 PM Age: 67 years old Clinical indication: Condition or disease; Cancer; Other: Non hodgkins lymphoma; Follow-up oncological assessment; Prior surgery; Surgery type: Gb; Additional info: Follow up, cpt [id number] TECHNIQUE: Imaging protocol: Computed tomography of the abdomen and pelvis with contrast. Radiation optimization: All CT scans at this facility use at least one of these dose optimization techniques: automated exposure control; mA and/or kV adjustment per patient size (includes targeted exams where dose is matched to clinical indication); or iterative reconstruction. Contrast material: OMNI 350; Contrast volume: 95 ml; Contrast route: INTRAVENOUS (IV); COMPARISON: CT chest abd pel w con* 09/05/2021 11:52 AM RADIATION DOSE METRICS: Total DLP (mGy-cm): FINDINGS: Liver: Left hepatic lobe cyst. Gallbladder and bile ducts: Cholecystectomy. Pancreas: Normal. No ductal dilation. Spleen: Spleen enlarged to 15 cm. Adrenal glands: Normal. No mass. Kidneys and ureters: Several bilateral renal cysts similar to prior exam, negative for follow-up advised. Left kidney lower pole nonobstructing calyceal stone Stomach and bowel: Diverticulosis without diverticulitis. Appendix: No evidence of appendicitis. Intraperitoneal space: Unremarkable. No free air. No significant fluid collection. Vasculature: Unremarkable. No abdominal aortic aneurysm. Lymph nodes: Unremarkable. No enlarged lymph nodes. Urinary bladder: Unremarkable as visualized. Reproductive: Prostate gland enlarged. Bones/joints: Unremarkable. No acute fracture. Soft tissues: Unremarkable. CT/CT chest abd pel w con* IMPRESSION: Negative for adenopathy or mass lesion. IMPRESSION: 1. Negative for adenopathy or concerning mass lesion. 2. Left hepatic lobe cyst. 3. Cholecystectomy. 4. Spleen enlarged to 15 cm. 5. Several bilateral renal cysts similar to prior exam, negative for follow-up advised. 6. Diverticulosis without diverticulitis. 7. Prostate gland enlarged. 8. Left kidney lower pole nonobstructing calyceal stone
[2022-04-11 12:02] LABS: Blood Urea Nitrogen 13 mg/dL (8-23); Glomerular Filtration Rate 96.4 mL/min (90-130)
== END 2022-04-11 10:52 | disposition home or self-care (01) ==
LOC: RAD 10:51
PROVIDERS: PCP Allergy & Immunology; Visit Provider Internal Medicine Hematology & Oncology
DX: C82.90 Follicular lymphoma, unspecified, unspecified site (principal); R16.1 Splenomegaly, not elsewhere classified; Q61.02 Congenital multiple renal cysts; K57.90 Diverticulosis of intestine, part unspecified, without perforation or abscess without bleeding; N40.0 Benign prostatic hyperplasia without lower urinary tract symptoms; N20.0 Calculus of kidney
CPT/HCPCS: 71260; 74177; 82565; 84520; Q9967

== ENCOUNTER 2022-04-13 07:52 | Oncology outpatient (recurring) (ONCR) | payer MEDICARE, BC, SELFPAY ==
[2022-04-13 08:28] LABS: Basophils % 0.4 %; Eosinophils # 0.1 10^3/uL (0.0-0.8); Eosinophils % 2.2 %; Hematocrit 43.1 % (42.0-52.0); Hemoglobin 14.8 g/dL (11.7-16.6); Lymphocytes # 0.4 10^3/uL (0.8-4.8); Lymphocytes % 9.9 %; Mean Corpuscular HGB Conc 34.3 g/dL (30.0-36.0); Mean Corpuscular Hemoglobin 31.2 pg (28.0-34.0); Mean Corpuscular Volume 90.7 fl (80-94); Mean Platelet Volume 10.6 fL (7.4-10.4); Monocytes # 0.5 10^3/uL (0.2-0.9); Monocytes % 10.5 %; Neutrophils # 3.42 10^3/uL (1.8-7.7); Neutrophils % 76.8 %; Nucleated Red Blood Cells % 0 %; Platelet Count 109 10^3/cmm (130-400); Red Blood Count 4.75 10^6/uL (4.1-5.3); Red Cell Distribution Width 12.4 % (12.1-15.1); White Blood Count 4.5 10^3/uL (4.0-10.0)
[2022-04-13 08:43] LABS: Alanine Aminotransferase 12 U/L (0-41); Alkaline Phosphatase 79 U/L (40-130); Aspartate Amino Transferase 20 U/L (0-40); Blood Urea Nitrogen 10 mg/dL (8-23); Calcium 8.9 mg/dL (8.5-10.5); Carbon Dioxide 26 mmol/L (22-29); Chloride 100 mmol/L (98-107); Globulin 2.2 g/dL (1.3-4.6); Glomerular Filtration Rate 84.2 mL/min (90-130); Glucose 102 mg/dL (65-115); Lactate Dehydrogenase 162 U/L (135-225); Osmolality Calculated 277 mOsm/kg (285-295); Sodium 134 mmol/L (136-145); Total Protein 6.2 g/dL (6.6-8.7)
== END 2022-05-01 23:59 | disposition home or self-care (01) ==
PROVIDERS: PCP Allergy & Immunology; Visit Provider Internal Medicine Hematology & Oncology
DX: C82.98 Follicular lymphoma, unspecified, lymph nodes of multiple sites (principal); Z92.21 Personal history of antineoplastic chemotherapy; D69.6 Thrombocytopenia, unspecified
CPT/HCPCS: 36415; 80053; 83615; 85025; 99214

== ENCOUNTER 2022-10-11 06:02 | Outpatient (CLI) | payer MEDICARE, BC, SELFPAY ==
--- NOTE | 2022-10-11 06:15 | US_ITS ---
WS: [id number] ABDOMINAL ULTRASOUND REASON FOR EXAM: Compare to CT history of lymphoma COMPARISON: None available. ORDER DATE: 10/11/2022 6:10 AM TECHNIQUE: Grayscale and Doppler ultrasound examination of the abdomen. FINDINGS: Somewhat increased bowel gas artifact interfering with visualization of abdominal viscera. Pancreas: Not visualized Abdominal aorta and IVC: Aorta not visualized. IVC unremarkable 18 mm diameter Liver: Liver measures 14.7 cm in length. Hepatopedal portal vein flow Gallbladder: Previous cholecystectomy Left kidney: Left kidney measures 10.8 cm x 5.6 cm x 7.0 cm. Satisfactory duplex vascularity Right kidney: Right kidney measures 10.1 cm x 6.2 cm x 5.2 cm. Satisfactory duplex vascularity. There are 2, 16 mm cysts in the right kidney Spleen: Spleen measures 11.8 cm x 5.0 cm x 10.1 cm. Heterogenous echotexture No ascites US/US abdomen complete* [id number] IMPRESSION: No specific abnormalities this time
== END 2022-10-11 06:03 | disposition home or self-care (01) ==
LOC: RAD 06:04
PROVIDERS: PCP Allergy & Immunology; Visit Provider Internal Medicine Hematology & Oncology
DX: C82.90 Follicular lymphoma, unspecified, unspecified site (principal)
CPT/HCPCS: 76700

== ENCOUNTER 2022-10-12 10:58 | Oncology outpatient (recurring) (ONCR) | payer MEDICARE, BC, SELFPAY ==
[2022-10-12 11:57] LABS: Basophils % 0.7 %; Eosinophils # 0.1 10^3/uL (0.0-0.8); Eosinophils % 2.5 %; Hematocrit 43.8 % (42.0-52.0); Hemoglobin 14.7 g/dL (11.7-16.6); Lymphocytes # 0.5 10^3/uL (0.8-4.8); Lymphocytes % 10.5 %; Mean Corpuscular HGB Conc 33.6 g/dL (30.0-36.0); Mean Corpuscular Hemoglobin 29.5 pg (28.0-34.0); Mean Corpuscular Volume 87.8 fl (80-94); Mean Platelet Volume 9.9 fL (7.4-10.4); Monocytes # 0.5 10^3/uL (0.2-0.9); Monocytes % 10.3 %; Neutrophils % 75.5 %; Nucleated Red Blood Cells % 0 %; Platelet Count 146 10^3/cmm (130-400); Red Blood Count 4.99 10^6/uL (4.1-5.3); White Blood Count 4.4 10^3/uL (4.0-10.0)
[2022-10-12 12:16] LABS: Alanine Aminotransferase 13 U/L (0-41); Albumin Level 4.1 g/dL (3.5-5.2); Alkaline Phosphatase 83 U/L (40-130); Aspartate Amino Transferase 22 U/L (0-40); Blood Urea Nitrogen 13 mg/dL (8-23); Calcium 8.8 mg/dL (8.5-10.5); Carbon Dioxide 27 mmol/L (22-29); Chloride 102 mmol/L (98-107); Glomerular Filtration Rate 74.5 mL/min (90-130); Glucose 101 mg/dL (65-115); Lactate Dehydrogenase 159 U/L (135-225); Osmolality Calculated 286 mOsm/kg (285-295); Sodium 138 mmol/L (136-145); Total Bilirubin 0.6 mg/dL (0.15-1.2); Total Protein 6.1 g/dL (6.6-8.7)
== END 2022-10-29 23:59 | disposition home or self-care (01) ==
PROVIDERS: PCP Family Medicine; Visit Provider Internal Medicine Hematology & Oncology
DX: Z08 Encounter for follow-up examination after completed treatment for malignant neoplasm; Z85.72 Personal history of non-Hodgkin lymphomas; Z92.21 Personal history of antineoplastic chemotherapy; Z92.25 Personal history of immunosuppression therapy
CPT/HCPCS: 36415; 80053; 83615; 85025; 99213; 99214

== ENCOUNTER 2023-04-13 09:29 | Outpatient (CLI) | payer MEDICARE, BC, SELFPAY ==
[2023-04-13 09:56] LABS: Blood Urea Nitrogen 11 mg/dL (8-23); Glomerular Filtration Rate 66.6 mL/min (90-130)
[2023-04-13] MEDS: iohexol 350 mg/mL 500 mL Btl (per mL) IV (09:57)
--- NOTE | 2023-04-13 10:00 | CTR_ITS ---
PROCEDURE INFORMATION: Exam: CT Chest With Contrast; Diagnostic Exam date and time: 04/13/2023 10:00 AM Age: 68 years old Clinical indication: Condition or disease; Cancer; Other: Follicular lymphoma; Additional info: Follow up, to be completed just prior to next oncology visit. History of non-Hodgkin's lymphoma. TECHNIQUE: Imaging protocol: Diagnostic computed tomography of the chest with contrast. Radiation optimization: All CT scans at this facility use at least one of these dose optimization techniques: automated exposure control; mA and/or kV adjustment per patient size (includes targeted exams where dose is matched to clinical indication); or iterative reconstruction. Contrast material: OMNI 350; Contrast volume: 100 ml; Contrast route: INTRAVENOUS (IV); REPORTING DATA: Count of CT and Cardiac NM exams in prior 12 months: This patient has received 0 known CTs and 0 known cardiac nuclear medicine studies in the 12 months prior to the current study. COMPARISON: CT chest abdpel w/*[id number] 04/11/2022 12:05 PM RADIATION DOSE METRICS: Total DLP (mGy-cm): 1279.03 FINDINGS: Lungs: No consolidation. No masses. Pleural spaces: No pneumothorax. No pleural effusion. Heart: No cardiomegaly. No pericardial effusion. Lymph nodes: No enlarged lymph nodes. Vasculature: No aortic aneurysm. Bones/joints: Unremarkable. No acute fracture. Soft tissues: Unremarkable. PROCEDURE INFORMATION: Exam: CT Abdomen And Pelvis With Contrast Exam date and time: 04/13/2023 10:00 AM Age: 68 years old Clinical indication: Condition or disease; Cancer; Other: Follicular lymphoma; Additional info: Follow up, to be completed just prior to next oncology visit TECHNIQUE: Imaging protocol: Computed tomography of the abdomen and pelvis with contrast. Radiation optimization: All CT scans at this facility use at least one of these dose optimization techniques: automated exposure control; mA and/or kV adjustment per patient size (includes targeted exams where dose is matched to clinical indication); or iterative reconstruction. Contrast material: OMNI 350; Contrast volume: 100 ml; Contrast route: INTRAVENOUS (IV); REPORTING DATA: Count of CT and Cardiac NM exams in prior 12 months: This patient has received 0 known CTs and 0 known cardiac nuclear medicine studies in the 12 months prior to the current study. COMPARISON: CT chest abdpel w/*[id number] 04/11/2022 12:05 PM RADIATION DOSE METRICS: Total DLP (mGy-cm): 1279.03 FINDINGS: Liver: 1.5 cm simple cyst noted adjacent to the falciform ligament. Gallbladder and bile ducts: Cholecystectomy. No ductal dilation. Pancreas: Normal. No ductal dilation. Spleen: Normal. No splenomegaly. Adrenal glands: Normal. No mass. Kidneys and ureters: Few scattered small simple cysts noted in the kidneys measuring up to 1.7 cm. No hydronephrosis. Stomach and bowel: Colonic diverticulosis. No obstruction. No mucosal thickening. Appendix: No evidence of appendicitis. Intraperitoneal space: No free air. No significant fluid collection. Vasculature: No abdominal aortic aneurysm. Lymph nodes: No enlarged lymph nodes. Urinary bladder: Unremarkable as visualized. Reproductive: Enlarged prostate. Bones/joints: No acute fracture. Soft tissues: Unremarkable. CT/CT chest abdpel w/*[id number] IMPRESSION: No evidence of residual/recurrent disease within the chest. IMPRESSION: No evidence of residual/recurrent disease in the abdomen/pelvis. COMMENTS: Consistent with the [employer]'s Incidental Findings Committee white paper (J Am Jus Radiol 2018): Any incidental renal lesion less than 1 cm or classified as too small to characterize, or any incidental cystic renal lesion characterized as simple-appearing, is likely benign. No follow-up imaging is recommended for these lesions per consensus recommendations based on imaging criteria.
== END 2023-04-13 09:30 | disposition home or self-care (01) ==
LOC: RAD 09:30
PROVIDERS: PCP Family Medicine; Visit Provider Internal Medicine Hematology & Oncology
DX: C82.90 Follicular lymphoma, unspecified, unspecified site (principal)
CPT/HCPCS: 71260; 74177; 82565; 84520; Q9967

== ENCOUNTER 2023-05-07 12:36 | Oncology outpatient (recurring) (ONCR) | payer MEDICARE, BC, SELFPAY ==
[2023-05-07 12:45] VITALS: BP 121/88; PULSE 76; RESP 16; TEMP 36.9; O2SAT 95
[2023-05-07 13:08] LABS: Basophils % 0.6 %; Eosinophils # 0.2 10^3/uL (0.0-0.8); Eosinophils % 3.1 %; Lymphocytes # 0.7 10^3/uL (0.8-4.8); Lymphocytes % 14.3 %; Mean Corpuscular HGB Conc 34.9 g/dL (30-55); Mean Corpuscular Hemoglobin 30.3 pg (27-33); Mean Corpuscular Volume 86.9 fl (82-101); Mean Platelet Volume 10.4 fL (7.4-10.4); Monocytes # 0.5 10^3/uL (0.2-0.9); Neutrophils % 71.8 %; Nucleated Red Blood Cells % 0 %; Platelet Count 148 10^3/cmm (157-399); Red Blood Count 4.72 10^6/uL (3.85-5.65); Red Cell Distribution Width 12.8 % (12.1-15.1); White Blood Count 4.88 10^3/uL (3.29-11.43)
[2023-05-07 13:48] LABS: Alanine Aminotransferase 25 U/L (0-41); Albumin Level 4.2 g/dL (3.5-5.2); Alkaline Phosphatase 79 U/L (40-130); Aspartate Amino Transferase 35 U/L (0-40); Blood Urea Nitrogen 12 mg/dL (8-23); Calcium 8.8 mg/dL (8.5-10.5); Carbon Dioxide 23 mmol/L (22-29); Chloride 104 mmol/L (98-107); Creatinine Clr Calc Pharmacy 90.4764; Globulin 1.9 g/dL (1.3-4.6); Glomerular Filtration Rate 83.9 mL/min (90-130); Glucose 93 mg/dL (65-115); Osmolality Calculated 283 mOsm/kg (285-295); Sodium 137 mmol/L (136-145); Total Bilirubin 0.9 mg/dL (0.15-1.2); Total Protein 6.1 g/dL (6.6-8.7)
[2023-05-07 13:55] LABS: Anion Gap 14.1 (5-19); Lactate Dehydrogenase 184 U/L (135-225); Potassium 4.1 mmol/L (3.5-5.1)
== END 2023-05-31 23:59 | disposition home or self-care (01) ==
PROVIDERS: Nurse Practitioner Family; PCP Family Medicine; Visit Provider Internal Medicine Hematology & Oncology
DX: C82.98 Follicular lymphoma, unspecified, lymph nodes of multiple sites (principal); Z92.21 Personal history of antineoplastic chemotherapy; D69.6 Thrombocytopenia, unspecified; Z79.899 Other long term (current) drug therapy
CPT/HCPCS: 36415; 80053; 83615; 85025; 99214

== ENCOUNTER 2023-12-17 12:49 | Oncology outpatient (recurring) (ONCR) | payer MEDICARE, BC, SELFPAY ==
[2023-12-17 13:30] LABS: Basophils % 0.7 %; Eosinophils # 0.2 10^3/uL (0.0-0.8); Eosinophils % 2.9 %; Hematocrit 42.1 % (37-53); Lymphocytes # 0.6 10^3/uL (0.8-4.8); Lymphocytes % 11.7 %; Mean Corpuscular HGB Conc 34.4 g/dL (30-55); Mean Corpuscular Volume 87.2 fl (82-101); Mean Platelet Volume 10.7 fL (7.4-10.4); Monocytes # 0.5 10^3/uL (0.2-0.9); Monocytes % 9.5 %; Neutrophils # 4.05 10^3/uL (1.8-7.7); Neutrophils % 74.5 %; Nucleated Red Blood Cells % 0 %; Platelet Count 137 10^3/cmm (157-399); Red Blood Count 4.83 10^6/uL (3.85-5.65); Red Cell Distribution Width 12.4 % (12.1-15.1); White Blood Count 5.45 10^3/uL (3.29-11.43)
[2023-12-17 13:49] LABS: Alanine Aminotransferase 36 U/L (0-41); Albumin Level 4.1 g/dL (3.5-5.2); Alkaline Phosphatase 80 U/L (40-130); Anion Gap 12.9 (5-19); Aspartate Amino Transferase 45 U/L (0-40); Blood Urea Nitrogen 9 mg/dL (8-23); Calcium 8.7 mg/dL (8.5-10.5); Carbon Dioxide 24 mmol/L (22-29); Chloride 107 mmol/L (98-107); Globulin 1.9 g/dL (1.3-4.6); Glomerular Filtration Rate 83.9 mL/min (90-130); Glucose 116 mg/dL (65-115); Osmolality Calculated 290 mOsm/kg (285-295); Potassium 3.9 mmol/L (3.5-5.1); Sodium 140 mmol/L (136-145); Total Bilirubin 0.6 mg/dL (0.15-1.2)
[2023-12-17 13:54] LABS: Lactate Dehydrogenase 198 U/L (135-225)
== END 2023-12-30 23:59 | disposition home or self-care (01) ==
PROVIDERS: PCP Family Medicine; Visit Provider Nurse Practitioner Family
DX: C82.90 Follicular lymphoma, unspecified, unspecified site (principal)
CPT/HCPCS: 36415; 80053; 83615; 85025; 99214

== ENCOUNTER 2024-04-18 10:41 | Oncology outpatient (recurring) (ONCR) | payer MEDICARE, BC, SELFPAY ==
--- NOTE | 2024-04-18 12:00 | CTR_ITS ---
PROCEDURE INFORMATION: Exam: CT Chest With Contrast; Diagnostic Exam date and time: 04/18/2024 12:38 PM Age: 69 years old Clinical indication: Lymphoma; Surveillance TECHNIQUE: Imaging protocol: Diagnostic computed tomography of the chest with contrast. Radiation optimization: All CT scans at this facility use at least one of these dose optimization techniques: automated exposure control; mA and/or kV adjustment per patient size (includes targeted exams where dose is matched to clinical indication); or iterative reconstruction. Contrast material: OMNI 350; Contrast volume: 100 ml; Contrast route: INTRAVENOUS (IV); COMPARISON: CT chest abdpel w/*[id number] 04/13/2023 10:00 AM RADIATION DOSE METRICS: Total DLP (mGy-cm): 1286.59 FINDINGS: Lungs: There are pulmonary parenchymal calcifications consistent with remote granulomatous organism exposure. Pleural spaces: Unremarkable. No pneumothorax. No pleural effusion. Heart: Unremarkable. No cardiomegaly. No pericardial effusion. Lymph nodes: Unremarkable. No enlarged lymph nodes. Vasculature: No central filling defects within the main pulmonary arteries through the first order segmental branches to suggest pulmonary embolism. Distal to this, the examination is inconclusive secondary to inadequate opacification of the distal pulmonary arteries. Bones/joints: There are degenerative changes in the thoracic spine.There are diffuse enthesopathic changes consistent with benign diffuse idiopathic skeletal hyperostosis (DISH). Soft tissues: Unremarkable. PROCEDURE INFORMATION: Exam: CT Abdomen And Pelvis With Contrast Exam date and time: 04/18/2024 12:38 PM Age: 69 years old Clinical indication: Lymphoma; Surveillance TECHNIQUE: Imaging protocol: Computed tomography of the abdomen and pelvis with contrast. Radiation optimization: All CT scans at this facility use at least one of these dose optimization techniques: automated exposure control; mA and/or kV adjustment per patient size (includes targeted exams where dose is matched to clinical indication); or iterative reconstruction. Contrast material: OMNI 350; Contrast volume: 100 ml; Contrast route: INTRAVENOUS (IV); COMPARISON: CT chest abdpel w/*[id number] 04/13/2023 10:00 AM RADIATION DOSE METRICS: Total DLP (mGy-cm): 1286.59 FINDINGS: Liver: 1.5 cm cyst with benign features adjacent to the falciform ligament unchanged from the prior study. Gallbladder and biliary ducts: The gallbladder has been removed. Pancreas: Normal. No ductal dilation. Spleen: Normal. No splenomegaly. Adrenal glands: Normal. No mass. Kidneys and ureters: There are bilateral renal cysts with benign features the larger of which measures 1.7 cm. No hydronephrosis or hydroureter. Stomach and bowel: There is diverticulosis of the colon without evidence of diverticulitis. Appendix: A normal appendix is identified. Intraperitoneal space: Unremarkable. No free air. No significant fluid collection. Vasculature: Unremarkable. No abdominal aortic aneurysm. Lymph nodes: Unremarkable. No enlarged lymph nodes. Urinary bladder: Unremarkable as visualized. Reproductive: Prostate gland indents the base of the bladder consistent with median lobe enlargement. This appears similar to the prior study. Bones/joints: There are degenerative changes in the lumbar spine. Degenerative changes extend across the hip joints. Soft tissues: Small fat containing umbilical hernia. CT/CT chest abdpel w/*[id number] IMPRESSION: No evidence for residual or recurrent lymphoma. IMPRESSION: 1. No acute findings and no evidence for residual or recurrent lymphoma. 2. Prostate gland indents the base of the bladder consistent with median lobe enlargement. This appears similar to the prior study.
[2024-04-18] MEDS: iohexol 350 mg/mL 500 mL Btl (per mL) PO (12:36)
[2024-04-18 12:44] LABS: Blood Urea Nitrogen 14 mg/dL (8-23)
[2024-04-18] MEDS: iohexol 350 mg/mL 500 mL Btl (per mL) IV (12:45)
== END 2024-05-01 23:59 | disposition home or self-care (01) ==
LOC: RAD 10:42 → ONCMED 05-01 15:36
PROVIDERS: PCP Family Medicine; Visit Provider Nurse Practitioner Family
DX: C82.90 Follicular lymphoma, unspecified, unspecified site (principal); C82.98 Follicular lymphoma, unspecified, lymph nodes of multiple sites; Z92.21 Personal history of antineoplastic chemotherapy; D69.6 Thrombocytopenia, unspecified; Z79.899 Other long term (current) drug therapy
CPT/HCPCS: 71260; 74177; 82565; 84520

== ENCOUNTER 2024-06-26 12:07 | Oncology outpatient (recurring) (ONCR) | payer MEDICARE, BC, SELFPAY ==
[2024-06-26 12:51] LABS: Basophils % 0.4 %; Eosinophils # 0.1 10^3/uL (0.0-0.8); Eosinophils % 2.1 %; Hematocrit 42.9 % (37-53); Lymphocytes # 0.7 10^3/uL (0.8-4.8); Mean Corpuscular HGB Conc 34.3 g/dL (30-55); Mean Corpuscular Hemoglobin 29.9 pg (27-33); Mean Corpuscular Volume 87.4 fl (82-101); Monocytes # 0.5 10^3/uL (0.2-0.9); Monocytes % 10.3 %; Neutrophils # 3.81 10^3/uL (1.8-7.7); Nucleated Red Blood Cells % 0 %; Platelet Count 139 10^3/cmm (157-399); Red Blood Count 4.91 10^6/uL (3.85-5.65); Red Cell Distribution Width 12.4 % (12.1-15.1); White Blood Count 5.15 10^3/uL (3.29-11.43)
[2024-06-26 13:09] LABS: Alanine Aminotransferase 33 U/L (0-41); Albumin Level 3.9 g/dL (3.5-5.2); Alkaline Phosphatase 73 U/L (40-130); Anion Gap 14.7 (5-19); Aspartate Amino Transferase 48 U/L (0-40); Blood Urea Nitrogen 16 mg/dL (8-23); Carbon Dioxide 24 mmol/L (22-29); Chloride 103 mmol/L (98-107); Glomerular Filtration Rate 83.7 mL/min (90-130); Glucose 150 mg/dL (65-115); Lactate Dehydrogenase 165 U/L (135-225); Osmolality Calculated 290 mOsm/kg (285-295); Potassium 3.7 mmol/L (3.5-5.1); Sodium 138 mmol/L (136-145); Total Bilirubin 0.7 mg/dL (0.15-1.2); Total Protein 5.9 g/dL (6.6-8.7)
== END 2024-07-01 23:59 | disposition home or self-care (01) ==
PROVIDERS: PCP Family Medicine; Visit Provider Nurse Practitioner Family
DX: C82.90 Follicular lymphoma, unspecified, unspecified site (principal); Z92.21 Personal history of antineoplastic chemotherapy; Z79.899 Other long term (current) drug therapy
CPT/HCPCS: 80053; 83615; 85025; 99213

== ENCOUNTER 2024-09-23 11:20 | Oncology outpatient (recurring) (ONCR) | payer MEDICARE, BC, SELFPAY ==
[2024-09-23 11:47] LABS: Basophils % 0.6 %; Eosinophils # 0.1 10^3/uL (0.0-0.8); Eosinophils % 2.1 %; Hematocrit 42.5 % (37-53); Lymphocytes # 0.6 10^3/uL (0.8-4.8); Lymphocytes % 12.6 %; Mean Corpuscular HGB Conc 33.9 g/dL (30-55); Mean Corpuscular Hemoglobin 29.4 pg (27-33); Mean Corpuscular Volume 86.9 fl (82-101); Mean Platelet Volume 10.1 fL (7.4-10.4); Monocytes # 0.5 10^3/uL (0.2-0.9); Monocytes % 9.3 %; Neutrophils # 3.64 10^3/uL (1.8-7.7); Nucleated Red Blood Cells % 0 %; Platelet Count 129 10^3/cmm (157-399); Red Blood Count 4.89 10^6/uL (3.85-5.65); Red Cell Distribution Width 12.4 % (12.1-15.1); White Blood Count 4.85 10^3/uL (3.29-11.43)
[2024-09-23 12:02] LABS: Alanine Aminotransferase 33 U/L (0-41); Albumin Level 4.1 g/dL (3.5-5.2); Alkaline Phosphatase 71 U/L (40-130); Anion Gap 11.9 (5-19); Aspartate Amino Transferase 50 U/L (0-40); Blood Urea Nitrogen 19 mg/dL (8-23); Calcium 8.8 mg/dL (8.5-10.5); Carbon Dioxide 27 mmol/L (22-29); Chloride 100 mmol/L (98-107); Glomerular Filtration Rate 66.4 mL/min (90-130); Glucose 120 mg/dL (65-115); Lactate Dehydrogenase 177 U/L (135-225); Osmolality Calculated 283 mOsm/kg (285-295); Potassium 3.9 mmol/L (3.5-5.1); Sodium 135 mmol/L (136-145); Total Protein 6.1 g/dL (6.6-8.7)
== END 2024-09-29 23:59 | disposition home or self-care (01) ==
LOC: ONCMED 11:22
PROVIDERS: Nurse Practitioner Family; PCP Family Medicine; Visit Provider Internal Medicine Medical Oncology
DX: Z08 Encounter for follow-up examination after completed treatment for malignant neoplasm (principal); Z85.72 Personal history of non-Hodgkin lymphomas
CPT/HCPCS: 36415; 80053; 83615; 85025; 99214

== ENCOUNTER 2025-04-21 10:30 | Oncology outpatient (recurring) (ONCR) | payer MEDICARE, BC, SELFPAY ==
[2025-04-14 11:30] LABS: Hematocrit 39.9 % (37-53); Hemoglobin 13.50 g/dL (11.27-16.99); Mean Corpuscular HGB Conc 33.8 g/dL (30-55); Mean Corpuscular Hemoglobin 29.9 pg (27-33); Mean Corpuscular Volume 88.5 fl (82-101); Nucleated Red Blood Cells % 0 %; Platelet Count 120 10^3/cmm (157-399); Red Blood Count 4.51 10^6/uL (3.85-5.65); White Blood Count 4.24 10^3/uL (3.29-11.43)
[2025-04-14 11:46] LABS: Alanine Aminotransferase 30 U/L (0-41); Albumin Level 4.2 g/dL (3.5-5.2); Alkaline Phosphatase 73 U/L (40-130); Anion Gap 16.8 (5-19); Aspartate Amino Transferase 41 U/L (0-40); Blood Urea Nitrogen 14 mg/dL (8-23); Calcium 8.8 mg/dL (8.5-10.5); Carbon Dioxide 25 mmol/L (22-29); Chloride 100 mmol/L (98-107); Creatinine Clr Calc Pharmacy 89.1394; Globulin 1.7 g/dL (1.3-4.6); Glucose 222 mg/dL (65-115); Osmolality Calculated 293 mOsm/kg (285-295); Potassium 3.8 mmol/L (3.5-5.1); Sodium 138 mmol/L (136-145); Total Protein 5.9 g/dL (6.6-8.7)
[2025-04-21] MEDS: iohexol 350 mg/mL 500 mL Btl (per mL) PO (10:23)
--- NOTE | 2025-04-21 10:30 | CTR_ITS ---
PROCEDURE INFORMATION: Exam: CT Chest With Contrast; Diagnostic Exam date and time: 04/21/2025 10:42 AM Age: 70 years old Clinical indication: Condition or disease; Other: Lymphoma; Prior surgery; Surgery date: 6+ months; Surgery type: Gb; Additional info: Surveillance TECHNIQUE: Imaging protocol: Diagnostic computed tomography of the chest with contrast. Radiation optimization: All CT scans at this facility use at least one of these dose optimization techniques: automated exposure control; mA and/or kV adjustment per patient size (includes targeted exams where dose is matched to clinical indication); or iterative reconstruction. Contrast material: OMNI 350; Contrast volume: 100 ml; Contrast route: INTRAVENOUS (IV); COMPARISON: CT chest abdpel w/*[id number] 04/18/2024 12:38 PM RADIATION DOSE METRICS: Total DLP (mGy-cm): 1299.36 FINDINGS: Lungs: Unremarkable. No consolidation. No masses. Pleural spaces: Unremarkable. No pneumothorax. No pleural effusion. Heart: Unremarkable. No cardiomegaly. No pericardial effusion. Lymph nodes: Unremarkable. No enlarged lymph nodes. Vasculature: Unremarkable. No aortic aneurysm. Bones/joints: Unremarkable. No acute fracture. Soft tissues: Unremarkable. PROCEDURE INFORMATION: Exam: CT Abdomen And Pelvis With Contrast Exam date and time: 04/21/2025 10:42 AM Age: 70 years old Clinical indication: Condition or disease; Other: Lymphoma; Prior surgery; Surgery date: 6+ months; Surgery type: Gb; Additional info: Surveillance TECHNIQUE: Imaging protocol: Computed tomography of the abdomen and pelvis with contrast. Radiation optimization: All CT scans at this facility use at least one of these dose optimization techniques: automated exposure control; mA and/or kV adjustment per patient size (includes targeted exams where dose is matched to clinical indication); or iterative reconstruction. Contrast material: OMNI 350; Contrast volume: 100 ml; Contrast route: INTRAVENOUS (IV); COMPARISON: CT chest abdpel w/*[id number] 09/05/2021 11:52 AM RADIATION DOSE METRICS: Total DLP (mGy-cm): 1299.36 FINDINGS: Liver: There is a small subserosal cyst within the left hepatic lobe adjacent to the fissure for the falciform ligament. Gallbladder and biliary ducts: Normal. No calcified stones. No ductal dilation. Pancreas: Normal. No ductal dilation. Spleen: Normal. No splenomegaly. Adrenal glands: Normal. No mass. Kidneys and ureters: There is a 3 mm nonobstructing calculus in the inferior pole of the left kidney. Again seen are the multiple small right renal cortical hypodensities. The majority of the is are too small to accurately characterize. Exophytic dominant lesion measures 18 mm at the superior pole of the right kidney. This is likely a proteinaceous cyst but is indeterminate by CT. This has slightly increased in size as compared to a prior CT from 09/05/2021. This was defined as a cyst on ultrasound from 10/11/2022. Stomach and bowel: There is moderate diverticulosis of the descending colon and sigmoid colon. Appendix: No evidence of appendicitis. Intraperitoneal space: Unremarkable. No free air. No significant fluid collection. Vasculature: Unremarkable. No abdominal aortic aneurysm. Lymph nodes: Unremarkable. No enlarged lymph nodes. Urinary bladder: The bladder is decompressed. Reproductive: Unremarkable as visualized. Bones/joints: There is degenerative changes throughout the lumbar spine. Soft tissues: Unremarkable. CT/CT chest abdpel w/*[id number] IMPRESSION: No acute process. No CT evidence of significant adenopathy. IMPRESSION: 1. No acute process 2. Diverticulosis of the descending sigmoid colon 3. No CT evidence of significant adenopathy. COMMENTS: Consistent with the [employer]'s Incidental Findings Committee white paper (J Am Jus Radiol 2018): Any incidental renal lesion less than 1 cm or classified as too small to characterize, or any incidental cystic renal lesion characterized as simple-appearing, is likely benign. No follow-up imaging is recommended for these lesions per consensus recommendations based on imaging criteria.
[2025-04-21] MEDS: iohexol 350 mg/mL 500 mL Btl (per mL) IV (10:52)
== END 2025-05-01 23:59 | disposition home or self-care (01) ==
LOC: RAD 04-22 00:01 → ONCMED 04-22 09:55
PROVIDERS: PCP Family Medicine; Visit Provider Nurse Practitioner Family
DX: Z53.9 Procedure and treatment not carried out, unspecified reason; C82.90 Follicular lymphoma, unspecified, unspecified site; K57.30 Diverticulosis of large intestine without perforation or abscess without bleeding; K76.89 Other specified diseases of liver; N20.0 Calculus of kidney; N28.89 Other specified disorders of kidney and ureter; N32.89 Other specified disorders of bladder; M47.896 Other spondylosis, lumbar region
CPT/HCPCS: 36415; 71260; 74177; 80053; 83615; 85025; 99214